=== PATIENT | male | born 1960 | race Caucasian/White ===

== ENCOUNTER → 2018-05-29 07:52 | Outpatient (CLI) | payer OTHER, SELFPAY ==
[2018-05-29 10:30] LABS: ALB/GLOB Ratio 1.1 RATIO (0.9-2.4); AST(SGOT) 15 U/L (15-37); Alanine Aminotransfer ALT/SGPT 23 U/L (16-61); Albumin, Serum 4.1 g/dL (3.2-5.0); Alkaline Phosphatase 82 U/L (45-117); Anion Gap 8 (5-15); BUN 17 mg/dL (7-18); BUN/Creat Ratio 17.9 RATIO (10-20); Calcium,Total 9.3 mg/dL (8.5-10.1); Chloride 100 mmol/L (98-107); Cholesterol 215 mg/dL (200); Creatinine, Serum 0.95 mg/dL (0.70-1.30); EST Glomerular Filtration Rate 87 mL/min (>60); Est Glom Filt Rate - Afr Amer 105 mL/min (>60); Globulin 3.8 g/dL (2.2-4.2); Glucose 91 mg/dL (74-106); High Density Lipoprotein 46 mg/dL; PSA,Total - Annual Screen 1.64 ng/mL (0.00-4.00); Potassium 3.7 mmol/L (3.5-5.1); Protein, Total 7.9 g/dL (6.4-8.2); Sodium Level 139 mmol/L (136-145); Triglycerides 124 mg/dL; Very Low Density Lipoprotein 25 mg/dL (5-40)
--- OUTSIDE RECORDS SUMMARY | 2018-07-24 01:32 | XMS RPT_ITS ---
:1960 Author Organization OHIP Care Team Providers Name Role Phone Dre Grullon Attending Unavailable Dre Grullon Referring Unavailable Dre Grullon Primary Care Unavailable PROBLEMS PROBLEMS No Problem Records FoundPROCEDURES PROCEDURES No Procedure Records FoundRESULTS RESULTS COMPREHENSIVE METABOLIC Collected: 05/29/2018 Status: F Source: BUBBA NICOLE 7:58 AM [facility] REPOSITORY Order Comment: Order Date: 06/05/17 Order Info: [id number] - CMP Order Info: [id number] - LIPID Order Info: [id number] - PSA TYPE CODE TESTS RESULT OUT OF RANGE REFERENCE UNITS LAB L501.0100 74-106 mg/dL Normal GLU 91 Result Comment: Please note revised GLUCOSE reference range effective 2017. LAB L501.1000 7-18 mg/dL Normal BUN 17 LAB L501.1100 0.70-1.30 mg/dL Normal CREAT,SERUM 0.95 Result Comment: The validity of the calculated GFR AND GFRAA in patients over 70 years has not been determined. Clinical correlation is essential. LAB L501.1110 >60 mL/min Normal EST GFR 87 Result Comment: Non- GFR Calc LAB L501.1115 >60 mL/min Normal EST GFR - AA 105 Result Comment: GFR Calc LAB L501.1300 10-20 RATIO Normal BUN/CRE 17.9 LAB L501.1500 6.4-8.2 g/dL T Normal PROT 7.9 LAB L501.1800 3.2-5.0 g/dL Normal ALB 4.1 LAB L501.1950 2.2-4.2 g/dL Normal GLOB 3.8 LAB L501.2000 0.9-2.4 RATIO Normal A/G 1.1 LAB L501.2200 8.5-10.1 mg/dL CA Normal 9.3 LAB L501.4100 15-37 U/L Normal AST 15 LAB L501.4305 45-117 U/L Normal ALK P 82 LAB L501.4405 16-61 U/L Normal ALT 23 LAB L501.4600 0.20-1.00 mg/dL T Normal BILI 0.90 LAB L501.5300 136-145 mmol/L NA Normal 139 LAB L501.5600 3.5-5.1 mmol/L K Normal 3.7 LAB L501.5900 98-107 mmol/L CL Normal 100 LAB L501.6100 21.0-32.0 mmol/L Normal CO2 31.0 LAB L501.6200 5-15 Normal GAP 8 Performed By: #### L500.4050, L500.4100 #### [facility] [address] [place], [address] LIPID PROFILE Collected: 05/29/2018 Status: F Source: NEVILLE 7:58 AM [facility] REPOSITORY Order Comment: Order Date: 06/05/17 Order Info: [id number] - CMP Order Info: [id number] - LIPID Order Info: [id number] - PSA TYPE CODE TESTS RESULT OUT OF RANGE REFERENCE UNITS LAB L501.4900 200 mg/dL High CHOL 215 Result Comment: <200 mg/dL Desirable 200-240 mg/dL Borderline >240 mg/dL High Risk LAB L501.5000 mg/dL Normal TRIG 124 Result Comment: The drugs N-Acetylcysteine and Metamizole may falsely depress this assay. Serum Triglycerides Reference Interval Normal <150 mg/dL Borderline high 150 - 199 mg/dL High 200 - 499 mg/dL Very High > or = 500 mg/dL LAB L501.6400 mg/dL Normal HDL 46 Result Comment: The drugs N-Acetylcysteine and Metamizole may falsely depress this assay. Reference Range HDL <40 mg/dL Low HDL Cholesterol HDL >or= 60 mg/dL High HDL Cholesterol LAB L501.6500 0-130 mg/dL High LDL 144 LAB L501.6600 5-40 mg/dL Normal VLDL 25 Performed By: #### L500.4050, L500.4100 #### [facility] [address] [place], [address] PSA,TOTAL - ANNUAL Collected: 05/29/2018 Status: F Source: BUBBA SCREEN 7:58 AM [facility] REPOSITORY Order Comment: Order Date: 06/05/17 Order Info: [id number] - CMP Order Info: [id number] - LIPID Order Info: [id number] - PSA TYPE CODE TESTS RESULT OUT OF RANGE REFERENCE UNITS LAB L501.9910 0.00-4.00 ng/mL Normal PSA,TOT 1.64 SCREEN Result Comment: This test was performed using the TPSA assay method for the [employer] chemistry system. Values obtained with different assay methods cannot be used interchangably. When changing PSA assays in the course of monitoring a patient, additional sequential testing should be carried out to confirm baseline values. Performed By: #### L501.9910 #### [facility] [address] [place], [address] ALLERGIES ALLERGIES No Allergies Records FoundENCOUNTERS ENCOUNTERS ADMIT/DISCHARGE ACCOUNT ADMITTING ENCOUNTER LOCATION SOURCE NUMBER CLASS 05/29/2018 [id number] Ambulatory [address] ing:MTLAB Repository PAYERS PAYERS ENCOUNTER GUARANTOR PAYER SUBSCRIBER SOURCE 05/29/2018 POLINA Ruby [id number] Primary Insurance:[id number] MCKEEDOB: [facility] [id number] [id number]: (234) Number: Repository [phone] () [id number] Date:[id number] [address], [place] [address]BT: CHECK WEBSITE 05/29/2018 [facility]:SELF [facility] Number: Effective Repository Date:2018-05-29
== END ==
PROVIDERS: Family Provider Family Medicine; PCP Family Medicine; Referring Provider Family Medicine; Visit Provider Family Medicine
DX: I10 Essential (primary) hypertension (principal); E78.5 Hyperlipidemia, unspecified; Z12.5 Encounter for screening for malignant neoplasm of prostate
CPT/HCPCS: 36415; 80053; 80061; 84153; G0103

== ENCOUNTER 2018-10-27 05:25 | Day surgery (SDC) | payer OTHER, SELFPAY ==
[2018-09-07 08:30] VITALS: BMI 24.4
[2018-10-27] VITALS (8 sets, daily range): BP systolic 107–127; BP diastolic 79–104; PULSE 62–79; RESP 16–18; TEMP 35.9–36.5; O2SAT 94–100; BMI 25.3
--- NOTE | 2018-10-27 | COLBX_PTH ---
PATIENT: POLINA KENT LOC: EN U#:[id number] AGE/SX: 58/M ROOM: RE10/27/[address]: Dr. Darien Gil MD : 1960 BED: DIS: 10/27/2018 SPEC #: [id number] RECD: 10/27/18 10:25 STATUS: ANAM KATHRYN #: [id number] DAMIÁN: 10/27/18 00:[address]: Darien Gil DEPT: SURGICAL PATHOLOGY RECD BY: Guilherme Carcamo ENTERED: 10/27/18 12:25 SP TYPE: COLON BX KYRA DR: Dr. Dre Grullon MD Tissues: A - Ascending colon B - Transverse colon C - SPLENIC FLEXURE D - Sigmoid colon biopsy E - Sigmoid colon biopsy Procedures: Surgery Specimen Level IV HEADER OPERATION: Colonoscopy - open access (MOD) PRE-OP DIAGNOSIS: Screening TISSUE SUBMITTED: A - Ascending colon polyp, B - Distal transverse polyp biopsy, C - Splenic flexure polyp biopsy, D - Proximal sigmoid polyp, E - Proximal sigmoid polyp MICROSCOPIC DIAGNOSIS A. Ascending colon polyp, biopsy: Tubular adenoma. Fragments of fecal material. B. Distal transverse colon polyp, biopsy: Fragments of tubular adenoma. C. Splenic flexure polyp, biopsy: Tubular adenoma. Fragments of fecal material. D. Proximal sigmoid colon polyp, biopsy: Tubular adenoma. Fragments of fecal material. E. Proximal sigmoid colon polyp, biopsy: Fragments of tubulovillous adenoma. CHIKIS:ab 10/28/18 MICROSCOPIC DESCRIPTION Slides are reviewed. GROSS DESCRIPTION A - Received in fixative is one container labeled with the patient's name and designated ascending colon polyp biopsy. The specimen consists of multiple irregular fragments of holt soft tissue mixed with fecal material that in aggregate measure 2 x 0.5 x 0.1 cm. The specimen is totally submitted in one cassette. B - Received in fixative is one container labeled with the patient's name and designated distal transverse polyp. The specimen consists of multiple irregular fragments of light holt soft tissue that in aggregate measure 1 x 0.3 x 0.1 cm. The specimen is totally submitted in one cassette. C - Received in fixative is one container labeled with the patient's name and designated splenic flexure polyp biopsy. The specimen consists of multiple irregular fragments of holt soft tissue mixed with fecal material that in aggregate measure 2.5 x 0.5 x 0.1 cm. The specimen is totally submitted in one cassette. D - Received in fixative is one container labeled with the patient's name and designated proximal sigmoid polyp. The specimen consists of multiple irregular fragments of holt soft tissue mixed with fecal material that in aggregate measure 1.5 x 0.3 x 0.1 cm. The specimen is totally submitted in one cassette. E - Received in fixative is one container labeled with the patient's name and designated proximal sigmoid polyp. The specimen consists of multiple irregular fragments of holt soft tissue mixed with fecal material that in aggregate measure 1 x 1 x 0.1 cm. The specimen is totally submitted in one cassette. / SJ:ab 10/27/18 TC:1 CPT: 97814 x5
--- NOTE | 2018-10-27 06:14 | PCM.HP.STD ---
Problem List (1) Screening for intestinal cancer Status: Acute History of Present Illness Date of Admission: 10/27/18 The patient is a 58 year old M who presents for screening colonoscopy. He states that his most recent one was approximately 5 years ago. He believes at that point he had a few polyps. They were benign. He denies bright red blood per rectum or melena. He otherwise enjoys good health. No history of recent hospitalizations. No history of DVT and thrombosis. No family history of colon cancer or colon polyps. Past Medical History Medical History: Medical History (Last Reviewed 09/07/18 @ 08:24 by Africa Pang) High cholesterol E78.00 history of finger surgery Hypertension I10 Allergies No Known Allergies Allergy (Unverified 10/26/18 16:04) Home Medications: Ambulatory Orders Medication Instructions Recorded atorvastatin 20 mg tablet 20 mg PO DAILY 07/02/18 hydrochlorothiazide 25 mg tablet 25 mg PO DAILY 07/02/18 Amlodipine Besylate [Norvasc] 10 mg PO DAILY 10/26/18 [place]-3/Dha/Epa/Fish Oil [Fish Oil 1 each PO DAILY 10/26/18 500 mg Softgel] Surgical History: Surgical History (Last Reviewed 09/07/18 @ 08:24 by Africa Pang) History of hernia repair Z98.890, Z87.19 History of vasectomy Z98.52 Smoking Status: Never smoker Tobacco Use: Chew Review of Systems Constitutional: Denies: Anorexia HEENT: Denies: Difficulty Swallowing Cardiovascular: Denies: Chest Pain Respiratory: Denies: Cough Gastrointestinal: Denies: Abdominal Pain, Melena Endocrine: Denies: Change in Body Habitus VTE Information - Inpt Only VTE Present on Admission: No Patient Problems: Active and Suspected Problems (Last Reviewed 09/07/18 @ 08:24 by Africa Pang) Screening for intestinal cancer (Acute) - Physical Exam General: Alert, Oriented x3, Cooperative, No apparent distress HEENT: Atraumatic Oral: Moist Mucosa Neck: Supple Lungs: Clear to auscultation Cardiovascular: Regular rate, Regular Rhythm Abdomen: Bowel Sounds Present, Soft, Non Tender, Non-Distended Psych/Mental Status: Normal Affect Vital Signs Temp Pulse Resp BP Pulse Ox 97.7 F L 79 16 123/89 H 99 10/27/18 05:47 10/27/18 05:47 10/27/18 05:47 10/27/18 05:47 10/27/18 05:47 Oxygen Delivery Method Room Air Weight: 181 lb 14.102 oz Body Mass Index (BMI) 25.3 Assessment/Plan All Active Problems (Last Reviewed 09/07/18 @ 08:24 by Africa Pang) Screening for intestinal cancer (Acute) Segmental and somatic dysfunction of pelvic region (Acute) Segmental and somatic dysfunction of lumbar region (Acute) Left lumbar radiculitis (Acute) I am recommending the patient is screening colonoscopy. He is aware of the technique, benefits, risks, alternatives. He has had an opportunity to ask and have questions answered. He presents via our open access program today. Darien Gil M.D., F.A.C.S.
--- NOTE | 2018-10-27 07:07 | OP.ENDO_ITS ---
10/27/2018 Colin Grullon [address] [place] [address] Re : Colonoscopy procedure for Aneudy Pena Dear Dr. Grullon This procedure was performed on Saturday, October 27, 2018. My impressions and recommendations are as follows: Impressions : - Hemorrhoids found on perianal exam. - Severe diverticulosis in the sigmoid colon and in the descending colon. There was no evidence of diverticular bleeding. - One 7 mm polyp in the mid ascending colon, removed with a cold snare. Resected and retrieved. - One 4 mm polyp in the distal transverse colon, removed with a cold biopsy forceps. Resected and retrieved. - One 5 mm polyp at the splenic flexure, removed with a cold biopsy forceps. Resected and retrieved. - One 6 mm polyp in the proximal sigmoid colon, removed with a cold snare. Resected and retrieved. - One 12 mm polyp in the proximal sigmoid colon, removed with a hot snare. Resected and retrieved. Clip was placed. Recommendations : - Repeat colonoscopy in 3 years for surveillance. - Telephone my office for pathology results in 1 week. - Discharge patient to home. - Resume previous diet. - Continue present medications. My findings are described in the full procedure note, which is enclosed. If I can be of further assistance, please feel free to contact me at Doctor phone number(s): Work: . Sincerely, Darien Gil MD 10/27/2018 7:07:33 AM This report has been signed electronically.
== END 2018-10-27 07:45 | disposition home or self-care (01) ==
LOC: EN 05:26 → AC 05:29
PROVIDERS: Family Provider Family Medicine; PCP Family Medicine; Referring Provider Family Medicine; Visit Provider Surgery
PROC: 0DJD8ZZ Inspection of Lower Intestinal Tract, Via Natural or Artificial Opening Endoscopic (ICD-10-PCS; CPT 45378; principal; 2018-10-27 06:25)
DX: Z12.11 Encounter for screening for malignant neoplasm of colon (principal); Z86.010 Personal history of colon polyps; K64.9 Unspecified hemorrhoids; D12.2 Benign neoplasm of ascending colon; D12.3 Benign neoplasm of transverse colon; D12.5 Benign neoplasm of sigmoid colon; K57.30 Diverticulosis of large intestine without perforation or abscess without bleeding; E78.00 Pure hypercholesterolemia, unspecified; I10 Essential (primary) hypertension
CPT/HCPCS: 45380; 45385; 88305; 99152; 99153; J7120

== ENCOUNTER → 2019-05-28 07:27 | Outpatient (CLI) | payer OTHER, SELFPAY ==
[2018-10-27 05:47] VITALS: BMI 25.3
[2019-05-28 10:34] LABS: ALB/GLOB Ratio 1.3 RATIO (0.9-2.4); AST(SGOT) 13 U/L (15-37); Alanine Aminotransfer ALT/SGPT 22 U/L (16-61); Albumin, Serum 4.3 g/dL (3.2-5.0); Alkaline Phosphatase 71 U/L (45-117); Anion Gap 7 (5-15); BUN 17 mg/dL (7-18); BUN/Creat Ratio 17.3 RATIO (10-20); Calcium,Total 9.2 mg/dL (8.5-10.1); Chloride 101 mmol/L (98-107); Cholesterol 205 mg/dL (200); Creatinine, Serum 0.98 mg/dL (0.70-1.30); EST Glomerular Filtration Rate 83 mL/min (>60); Est Glom Filt Rate - Afr Amer 101 mL/min (>60); Globulin 3.3 g/dL (2.2-4.2); Glucose 96 mg/dL (74-106); High Density Lipoprotein 47 mg/dL; PSA,Total - Annual Screen 2.01 ng/mL (0.00-4.00); Potassium 4.3 mmol/L (3.5-5.1); Protein, Total 7.6 g/dL (6.4-8.2); Sodium Level 139 mmol/L (136-145); Triglycerides 164 mg/dL; Very Low Density Lipoprotein 33 mg/dL (5-40)
== END ==
PROVIDERS: Family Provider Family Medicine; PCP Family Medicine; Referring Provider Family Medicine; Visit Provider Family Medicine
DX: I10 Essential (primary) hypertension (principal)
CPT/HCPCS: 36415; 80053; 80061; 84153; G0103

== ENCOUNTER → 2019-12-02 07:19 | Outpatient (CLI) | payer OTHER, SELFPAY ==
[2018-10-27 05:47] VITALS: BMI 25.3
[2019-12-02 10:27] LABS: Anion Gap 7 (5-15); BUN 24 mg/dL (7-18); BUN/Creat Ratio 23.8 RATIO (10-20); Calcium,Total 9.4 mg/dL (8.5-10.1); Chloride 102 mmol/L (98-107); Cholesterol 167 mg/dL (200); Creatinine, Serum 1.01 mg/dL (0.70-1.30); EST Glomerular Filtration Rate 81 mL/min (>60); Est Glom Filt Rate - Afr Amer 98 mL/min (>60); Glucose 100 mg/dL (74-106); High Density Lipoprotein 43 mg/dL; Potassium 3.8 mmol/L (3.5-5.1); Sodium Level 139 mmol/L (136-145); Triglycerides 111 mg/dL; Very Low Density Lipoprotein 22 mg/dL (5-40)
== END ==
PROVIDERS: PCP Family Medicine; Referring Provider Family Medicine; Visit Provider Family Medicine
DX: I10 Essential (primary) hypertension (principal); E78.5 Hyperlipidemia, unspecified
CPT/HCPCS: 36415; 80048; 80061

== ENCOUNTER → 2020-02-14 | Outpatient (CLI) | payer OTHER, SELFPAY ==
[2018-10-27 05:47] VITALS: BMI 25.3
[2020-02-14 11:09] LABS: Bacteria 0 SEEN /hpf (None Seen); Mucous, Urine 0 SEEN /hpf (<or=2+); Squamous Epithelial Cells - UA 0 SEEN /hpf (0-5); White Blood Cells 0 SEEN /hpf (0-5)
[2020-02-14 12:36] LABS: Color, Urine Yellow (Yellow); Glucose, Dipstick Normal (Normal); Ketone-Dipstick Negative (Negative); Leukocyte Esterase-Dipstick Negative /ul (Negative); Nitrite-Dipstick Negative (Negative); Occult Blood-Urine 25 /ul (Negative); Protein-Dipstick Negative (Negative); Urine Bilirubin Dipstick Negative (Negative); Urine Clarity Clear (Clear); Urine Urobilinogen Normal (Normal)
[2020-02-14 12:42] LABS: Red Blood Cells-Urine 0-5 SEEN /hpf (0-5)
== END | disposition home or self-care (01) ==
LOC: MFPLAB 11:05 → LABSPEC 11:06
PROVIDERS: PCP Family Medicine; Referring Provider Family Medicine; Visit Provider Nurse Practitioner Adult Health
DX: R31.9 Hematuria, unspecified (principal)
CPT/HCPCS: 81001

== ENCOUNTER → 2020-06-12 08:57 | Outpatient (CLI) | payer OTHER, SELFPAY ==
[2018-10-27 05:47] VITALS: BMI 25.3
--- NOTE | 2020-06-12 09:00 | RAD_ITS ---
STUDY: X-RAY - LUMBOSACRAL SPINE REASON FOR EXAM: Male, 59 years old. low back pain TECHNIQUE: 7 view(s) of the lumbosacral spine were obtained. COMPARISON: 07/20/2018 FINDINGS: Normal lumbar lordosis. Mild dextroscoliosis. 5 mm of anterolisthesis of L3 on L4 which is unchanged. This is unchanged on the flexion and extension views without evidence of instability. There is demineralization of the lumbar vertebrae. There is multi-level degenerative disc disease with multi-level disc space narrowing. Normal bilateral sacral ala, sacroiliac joints, and visualized sacrum. Normal visualized soft tissue structures. RAD/L/S Spine Bending Flex/Ext IMPRESSION: Mild dextroscoliosis with degenerative disc disease with 5 mm of anterolisthesis of L3 on L4 which is unchanged on the flexion and extension views. Electronically Signed: Ryan Baker MD at 17:00 EST Tel , Service support ,
== END ==
LOC: MTLAB 08:58 → MTRAD 08:59
PROVIDERS: PCP Family Medicine; Referring Provider Family Medicine; Visit Provider Family Medicine
DX: M43.16 Spondylolisthesis, lumbar region (principal); M51.36 Other intervertebral disc degeneration, lumbar region
CPT/HCPCS: 72120

== ENCOUNTER → 2020-07-06 10:16 | Outpatient (CLI) | payer OTHER, SELFPAY ==
[2018-10-27 05:47] VITALS: BMI 25.3
--- NOTE | 2020-07-06 10:20 | MRI_ITS ---
STUDY: MRI LUMBAR SPINE WITHOUT CONTRAST REASON FOR EXAM: Male, 59 years old. c/o low back pain into R leg and down into calf, no known trauma TECHNIQUE: Standardized fat and water weighted pulse sequences were obtained in the sagittal and axial planes. COMPARISON: X-ray 06/12/2020 FINDINGS: T12-L1: Normal endplates. Normal disc height, hydration and morphology. Normal bilateral facet joints. Normal central canal and bilateral lateral recesses. Normal bilateral intervertebral neural foramina. Normal lumbar lordosis. There is no substantial scoliosis. Normal conus medullaris that terminates at the T12. L1-2: Disc desiccation with a small central annular tear but no disc protrusion, spinal stenosis, or neural foraminal stenosis. L2-3: Normal endplates. Normal disc height, hydration and morphology. Normal bilateral facet joints. Normal central canal and bilateral lateral recesses. Normal bilateral intervertebral neural foramina. L3-4: Moderate bilateral facet hypertrophy and mild ligament flavum hypertrophy. 5 mm of anterolisthesis of L3 on L4 with a mild broad disc protrusion produces mild spinal stenosis, mild bilateral lateral recess stenosis and severe bilateral neural foraminal stenosis with effacement of the exiting L3 nerve roots bilaterally. L4-5: Mild bilateral facet hypertrophy and ligament flavum hypertrophy. Moderate broad disc protrusion produces moderate spinal stenosis with moderate bilateral lateral recess stenosis with abutment of the L5 nerve roots bilaterally, moderate right lateral recess stenosis with abutment of the right L4 nerve root laterally and severe left neural foraminal stenosis with effacement the left L4 nerve root laterally. L5-S1: Mild bilateral facet hypertrophy and ligament flavum hypertrophy. Mild broad disc protrusion produces mild spinal stenosis with mild bilateral lateral recess stenosis and mild left neural foraminal stenosis but severe right neural foraminal stenosis with effacement of the right L5 nerve root laterally. Normal visualized sacral ala. Normal visualized paraspinous soft tissue structures. MRI/Spine Lumbar (Routine) IMPRESSION: Multilevel degenerative changes, as described above. Electronically Signed: Ryan Baker MD at 12:42 EST Tel , Service support ,
== END ==
PROVIDERS: PCP Family Medicine; Referring Provider Family Medicine; Visit Provider Family Medicine
DX: M54.5 Low back pain (principal)
CPT/HCPCS: 72148

== ENCOUNTER → 2020-11-30 07:01 | Outpatient (CLI) | payer OTHER, SELFPAY ==
[2020-07-28 08:50] VITALS: BMI 25.7
[2020-11-30 10:50] LABS: ALB/GLOB Ratio 1.2 RATIO (0.9-2.4); AST(SGOT) 16 U/L (15-37); Alanine Aminotransfer ALT/SGPT 27 U/L (16-61); Alkaline Phosphatase 73 U/L (45-117); Anion Gap 8 (5-15); BUN 22 mg/dL (7-18); BUN/Creat Ratio 24.3 RATIO (10-20); Calcium,Total 8.9 mg/dL (8.5-10.1); Chloride 102 mmol/L (98-107); Cholesterol 167 mg/dL (200); EST Glomerular Filtration Rate 91 mL/min (>60); Est Glom Filt Rate - Afr Amer 110 mL/min (>60); Globulin 3.2 g/dL (2.2-4.2); Glucose 103 mg/dL (74-106); High Density Lipoprotein 53 mg/dL; PSA,Total - Annual Screen 2.08 ng/mL (0.00-4.00); Potassium 4.2 mmol/L (3.5-5.1); Protein, Total 7.2 g/dL (6.4-8.2); Sodium Level 140 mmol/L (136-145); Triglycerides 94 mg/dL; Very Low Density Lipoprotein 19 mg/dL (5-40)
== END ==
PROVIDERS: PCP Family Medicine; Referring Provider Family Medicine; Visit Provider Family Medicine
DX: I10 Essential (primary) hypertension (principal); E78.5 Hyperlipidemia, unspecified; Z12.5 Encounter for screening for malignant neoplasm of prostate
CPT/HCPCS: 36415; 80053; 80061; 84153; G0103

== ENCOUNTER → 2021-12-11 | Outpatient (CLI) | payer OTHER, SELFPAY ==
[2021-12-11 12:57] LABS: ALB/GLOB Ratio 1.1 RATIO (0.9-2.4); AST(SGOT) 18 U/L (15-37); Alanine Aminotransfer ALT/SGPT 41 U/L (16-61); Albumin, Serum 4.2 g/dL (3.2-5.0); Alkaline Phosphatase 79 U/L (45-117); Anion Gap 6 (5-15); BUN 28 mg/dL (7-18); BUN/Creat Ratio 29.4 RATIO (10-20); Calcium,Total 9.4 mg/dL (8.5-10.1); Chloride 103 mmol/L (98-107); Cholesterol 184 mg/dL (200); Creatinine, Serum 0.95 mg/dL (0.70-1.30); EST Glomerular Filtration Rate 86 mL/min (>60); Est Glom Filt Rate - Afr Amer 103 mL/min (>60); Globulin 3.7 g/dL (2.2-4.2); Glucose 99 mg/dL (74-106); High Density Lipoprotein 51 mg/dL; Protein, Total 7.9 g/dL (6.4-8.2); Sodium Level 138 mmol/L (136-145); Triglycerides 102 mg/dL; Very Low Density Lipoprotein 20 mg/dL (5-40)
== END | disposition home or self-care (01) ==
PROVIDERS: PCP Family Medicine; Referring Provider Family Medicine; Visit Provider Family Medicine
DX: Z12.5 Encounter for screening for malignant neoplasm of prostate (principal); E78.5 Hyperlipidemia, unspecified; I10 Essential (primary) hypertension
CPT/HCPCS: 36415; 80053; 80061; 84153; G0103

== ENCOUNTER 2022-10-11 06:48 | Day surgery (SDC) | payer OTHER, SELFPAY ==
[2022-10-11] VITALS (8 sets, daily range): BP systolic 96–145; BP diastolic 68–102; PULSE 48–67; RESP 16–18; TEMP 36–36.6; O2SAT 92–100; BMI 25.6
[2022-10-11] MEDS: Lactated Ringers 1,000 ML 15 ML IV (07:19)
--- NOTE | 2022-10-11 07:30 | HP.PCM_ITS ---
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: No Accompanied by: Is patient in pain?: No Allergies lactase [From [employer]] Allergy (Mild, Verified 07/25/22 07:35) Rashsoap Allergy (Mild, Verified 07/25/22 07:35) Rash Medications hydrochlorothiazide 25 mg tablet 25 mg PO DAILY bp 07/02/18 [History Confirmed 07/25/22] amlodipine 10 mg tablet 10 mg PO DAILY 10/26/18 [History Confirmed 07/25/22] atorvastatin 20 mg tablet 40 mg PO DAILY cholesterol 07/28/20 [History Confirmed 07/25/22] losartan 100 mg tablet 100 mg PO DAILY 07/28/20 [History Confirmed 07/25/22] meloxicam 7.5 mg tablet 7.5 mg PO DAILY 07/25/22 [History Confirmed 07/25/22] PFSH Medical History?(Updated 07/25/22 @ 07:[address] Darien Gil MD) High cholesterol History of colon polyps history of finger surgery Hypertension Surgical History? History of hernia repair History of vasectomy Family History? Mother HypertensionFather?? Hyperlipidemia sarcoid tumor S/P triple vessel bypassAunt Bone cancerAunt Breast cancerUncle DiabetesGrandfather?? Myocardial infarctionOther Cancer Social History? household members:? spouse and children housing:? house current occupational status:? employed Smoking Status:? Never smoker alcohol intake:? current alcohol intake frequency: holidays/special occasions only substance use type:? does not use what type of physical activity do you participate in:? 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 Yes HPI HPI HPI: 61-year-old gentleman who is being referred by Dr. Dre Grullon for surgical consultation regarding a surveillance colonoscopy.? He otherwise enjoys good health.? It is of note that I have assisted the patient as recently as October 27, 2018 with a colonoscopy.? I removed a tubular adenoma from the ascending colon and a tubular adenoma from the distal transverse colon and a tubular adenoma from the splenic flexure and a tubular adenoma from from the proximal sigmoid and a tubulovillous adenoma from the proximal sigmoid.? Fortunately at this time he has no bright red blood per rectum or melena.? No unexpected weight change.? He enjoys good health other than hypertension and hyperlipidemia.? He is not on any anticoagulation. ROS General General: No weight change, appetite, fatigue, colon cancer, breast cancer or weakness HEENT HEENT: No difficulty swallowing, eye injury, eye surgery, swollen glands or hoarseness Endo Endocrine: No thyroid disease, diabetes mellitus, thyroid cancer, Hair loss, heat intolerance or cold intolerance Skin Skin: No rash or changing moles Breast Breast: No left breast lump, right breast lump, nipple discharge, breast pain, abnormal mammogram, abnormal US or breast enlargement Musc Musculoskeletal: No back problems, arthritis, rheumatoid arthritis, gout or joint pain Cardio Cardiovascular: Yes high blood pressure; No murmur, pacemaker, heart disease, atrial fibrillation, heart attack, heart stent, palpitations, shortness of breat with exertion or chest pain Psych Psychiatric: No depression, anxiety or hearing voices Resp Respiratory: No shortness of breath, No sleep apnea, No cough, No COPD, No asthma, No emphysema and No wheezing Gastro Gastrointestinal: No abdominal pain, No nausea or vomiting, No diarrhea, No constipation, No blood in stool, No acid reflux, No hemorrhoids, No ulcers, No gallbladder problem and No black,tarry stools Jonah Hematologic: No blood thinners, No blood disorders, No bleeding, No anemia and No blood clots Neuro Neurologic: No system reviewed and no additional complaints, except as documented, No as per HPI, No abnormal gait, No abnormal hearing, No abnormal movements, No abnormal speech, No behavioral changes, No burning sensations, No confusion, No convulsions, No disequilibrium, No dizziness, No localized weakness, No frequent falls, No headache(s), No lack of coordination, No loss of vision, No memory loss, No numbness, No other visual disturbances, No radicular pain, No restless legs, No sensory deficit, No syncope, No tingling, No tremor(s), No weakness and No other Exam Const General: cooperative, healthy appearing, comfortable and no acute distress [facility] Head: normal to inspection Eyes General: appearance normal, both eyes and all related structures Neck Neck: normal visual inspection Carotids: normal carotid upstroke and no bruits Chest Chest palpation & inspection: normal inspection of the chest Resp Effort & Inspection: normal respiratory effort Auscultation: clear to auscultation bilaterally Cardio Rate: regular rate Rhythm: regular rhythm GI Palpation: soft and no hepatosplenomegaly Auscultation: normal bowel sounds Neuro General: patient alert, patient awake and patient oriented x3 Extrem General: no calf tenderness Psych Appearance: grossly normal Assessment and Plan Assessment and Plan (1) History of colon polyps: ?Status:?Acute ?Plan: 61-year-old gentleman with a personal history of colon polyps.? Previous colonoscopy October 27, 2018 with 5 polyps removed at that time 1 including a tubulovillous adenoma of the proximal sigmoid.? I do recommend him a colonoscopy with possible biopsy or polypectomy as indicated.? He is aware of the technique, benefit, risk and alternatives.? He has had an opportunity to ask and have questions answered.? We will schedule procedure at his discretion.? I appreciate the opportunity of assisting with the surgical care. Copy: Dr. Dre Gil M.D., F.A.C.S I have examined the patient and the H&P has been reviewed. There are no clinical changes since date of exam. Darien Gil M.D., F.A.C.S.
--- NOTE | 2022-10-11 08:54 | OP.COLON_ITS ---
Patient Name: Aneudy Pena Procedure Date: 10/11/2022 8:23 AM Date of : 1960 Age: 62 Procedure: Colonoscopy Indications: High risk colon cancer surveillance: Personal history of colonic polyps Providers: Darien Gil MD Referring MD: Colin Grullon Medicines: See the Anesthesia note for documentation of the administered medications Patient Profile: Last Colonoscopy: September 2018. Complications: No immediate complications. Procedure: Pre-Anesthesia Assessment: - Prior to the procedure, a History and Physical was performed, and patient medications and allergies were reviewed. The patient's tolerance of previous anesthesia was also reviewed. The risks and benefits of the procedure and the sedation options and risks were discussed with the patient. All questions were answered, and informed consent was obtained. Prior Anticoagulants: The patient has taken no previous anticoagulant or antiplatelet agents. ASA Grade Assessment: II - A patient with mild systemic disease. After reviewing the risks and benefits, the patient was deemed in satisfactory condition to undergo the procedure. After I obtained informed consent, the scope was passed under direct vision. Throughout the procedure, the patient's blood pressure, pulse, and oxygen saturations were monitored continuously. The pediatric colonoscope was introduced through the anus and advanced to the cecum, identified by appendiceal orifice and ileocecal valve. The colonoscopy was performed without difficulty. The patient tolerated the procedure well. The quality of the bowel preparation was good. The ileocecal valve and the appendiceal orifice were photographed. Scope In: 8:32:50 AM Scope Withdrawal Time 0 hours 10 minutes 25 seconds Scope Out: 8:49:21 AM Total Procedure Duration Time 0 hours 16 minutes 31 seconds Findings: The digital rectal exam findings include non-thrombosed internal hemorrhoids, internal hemorrhoids (Grade I) and enlarged prostate. Multiple diverticula were found in the sigmoid colon and descending colon. Impression: - Non-thrombosed internal hemorrhoids, internal hemorrhoids (Grade I) and enlarged prostate found on digital rectal exam. - Diverticulosis in the sigmoid colon and in the descending colon. - No specimens collected. Recommendation: - Discharge patient to home. - Resume previous diet. - Continue present medications. - Repeat colonoscopy in 5 years for surveillance. Procedure Code(s): --- Professional --- 55327, Colonoscopy, flexible; diagnostic, including collection of specimen(s) by brushing or washing, when performed (separate procedure) Diagnosis Code(s): --- Professional --- Z86.010, Personal history of colonic polyps K64.0, First degree hemorrhoids N40.0, Benign prostatic hyperplasia without lower urinary tract symptoms K57.30, Diverticulosis of large intestine without perforation or abscess without bleeding CPT copyright 2017 [employer]. All rights reserved. The codes documented in this report are preliminary and upon roller repairer review may be revised to meet current compliance requirements. Darien Gil MD 10/11/2022 8:53:40 AM This report has been signed electronically. Number of Addenda: 0 Note Initiated On: 10/11/2022 8:23 AM
--- NOTE | 2022-10-11 08:55 | OP.CCLET_ITS ---
10/11/2022 Colin Grullon [address] [place] [address] Re : Colonoscopy procedure for Aneudy Pena Dear Dr. Grullon This procedure was performed on Tuesday, October 11, 2022. My impressions and recommendations are as follows: Impressions : - Non-thrombosed internal hemorrhoids, internal hemorrhoids (Grade I) and enlarged prostate found on digital rectal exam. - Diverticulosis in the sigmoid colon and in the descending colon. - No specimens collected. Recommendations : - Discharge patient to home. - Resume previous diet. - Continue present medications. - Repeat colonoscopy in 5 years for surveillance. My findings are described in the full procedure note, which is enclosed. If I can be of further assistance, please feel free to contact me at Doctor phone number(s): Work: . Sincerely, Darien Gil MD 10/11/2022 8:53:40 AM This report has been signed electronically.
== END 2022-10-11 09:48 | disposition home or self-care (01) ==
LOC: EN 06:49 → AC 06:51
PROVIDERS: PCP Family Medicine; Referring Provider Family Medicine; Visit Provider Surgery
PROC: 0DJD8ZZ Inspection of Lower Intestinal Tract, Via Natural or Artificial Opening Endoscopic (ICD-10-PCS; CPT 45378; principal; 2022-10-11 07:55)
DX: Z12.11 Encounter for screening for malignant neoplasm of colon (principal); K64.0 First degree hemorrhoids; K57.30 Diverticulosis of large intestine without perforation or abscess without bleeding; N40.0 Benign prostatic hyperplasia without lower urinary tract symptoms; I10 Essential (primary) hypertension; E78.5 Hyperlipidemia, unspecified; Z79.899 Other long term (current) drug therapy; Z86.010 Personal history of colon polyps
CPT/HCPCS: 45378; J7120

== ENCOUNTER → 2022-11-12 | Outpatient (CLI) | payer OTHER, SELFPAY ==
[2022-11-12 12:57] LABS: AST(SGOT) 16 U/L (15-37); Alanine Aminotransfer ALT/SGPT 24 U/L (16-61); Alkaline Phosphatase 72 U/L (45-117); Anion Gap 7 (5-15); BUN 24 mg/dL (7-18); BUN/Creat Ratio 27.6 RATIO (10-20); Calcium,Total 9.6 mg/dL (8.5-10.1); Chloride 105 mmol/L (98-107); Cholesterol 171 mg/dL (200); Creatinine, Serum 0.87 mg/dL (0.70-1.30); EST Glomerular Filtration Rate 95 mL/min (>60); Est Glom Filt Rate - Afr Amer 115 mL/min (>60); Globulin 3.9 g/dL (2.2-4.2); Glucose 103 mg/dL (74-106); High Density Lipoprotein 47 mg/dL; Potassium 3.9 mmol/L (3.5-5.1); Protein, Total 7.9 g/dL (6.4-8.2); Sodium Level 140 mmol/L (136-145); Triglycerides 92 mg/dL; Very Low Density Lipoprotein 18 mg/dL (5-40)
== END | disposition home or self-care (01) ==
LOC: MTLAB 09:34
PROVIDERS: PCP Family Medicine; Referring Provider Family Medicine; Visit Provider Family Medicine
DX: E78.5 Hyperlipidemia, unspecified (principal); Z12.5 Encounter for screening for malignant neoplasm of prostate
CPT/HCPCS: 36415; 80053; 80061

== ENCOUNTER 2023-09-01 08:27 | Day surgery (SDC) | payer OTHER, SELFPAY ==
--- NOTE | 2023-08-29 06:59 | EKG12_ITS ---
Test Reason : PREOP Blood Pressure : / mmHG Vent. Rate : 077 BPM Atrial Rate : 077 BPM P-R Int : 150 ms QRS Dur : 100 ms QT Int : 380 ms P-R-T Axes : 039 081 067 degrees QTc Int : 430 ms Normal sinus rhythm Normal ECG Confirmed by EDITH CHRISTIANSON, HORACIO ([id number]), purchase request editor NEELIMA LEZAMA ([id number]) on 09/01/2023 6:53:59 AM Referred By: Darien Gil Confirmed By:TASHIA SHARMA MD
[2023-08-29 09:32] LABS: Hematocrit 43.2 % (40-54); Hemoglobin 14.7 g/dL (13.0-16.5); Mean Corpuscular Hgb 30.3 pg (27.0-32.0); Mean Corpuscular Volume 89.1 fL (80-94); Mean Platelet Vol. 11.3 fl (6.2-12.0); Platelet Count 251 K/mm3 (150-450); RBC Distribution Width CV 12.4 % (11.6-14.6); RBC Distribution Width SD 40.5 fl (35.1-43.9); Red Blood Count 4.85 M/mm3 (4.6-6.2); White Blood Count 5.8 K/mm3 (4.4-11.0)
[2023-08-29 10:08] LABS: ALB/GLOB Ratio 1.1 RATIO (0.9-2.4); AST(SGOT) 13 U/L (15-37); Alanine Aminotransfer ALT/SGPT 19 U/L (16-61); Albumin, Serum 4.2 g/dL (3.2-5.0); Alkaline Phosphatase 78 U/L (45-117); Anion Gap 5 (5-15); BUN 18 mg/dL (7-18); BUN/Creat Ratio 17.5 RATIO (10-20); Calcium,Total 9.4 mg/dL (8.5-10.1); Chloride 106 mmol/L (98-107); Cholesterol 178 mg/dL (200); Creatinine, Serum 1.03 mg/dL (0.70-1.30); EST Glomerular Filtration Rate 78 mL/min (>60); Est Glom Filt Rate - Afr Amer 94 mL/min (>60); Globulin 3.7 g/dL (2.2-4.2); Glucose 105 mg/dL (74-106); High Density Lipoprotein 43 mg/dL; PSA,Total - Annual Screen 2.78 ng/mL (0.00-4.00); Potassium 3.8 mmol/L (3.5-5.1); Protein, Total 7.9 g/dL (6.4-8.2); Sodium Level 138 mmol/L (136-145); Triglycerides 112 mg/dL; Very Low Density Lipoprotein 22 mg/dL (5-40)
[2023-08-30 06:09] LABS: V-Zoster IgG (Immunity) 238 index (Immune >165)
[2023-09-01] VITALS (8 sets, daily range): BP systolic 116–135; BP diastolic 64–96; PULSE 52–66; RESP 16–18; TEMP 36.2–36.6; O2SAT 91–98; BMI 27.1
--- NOTE | 2023-09-01 | LES_PTH ---
PATHOLOGY RESULTS PATIENT: POLINA KENT LOC: [facility] [place] U#:[id number] AGE/SX: 62/M ROOM: RE09/01/[address]: Dr. Darien Gil MD : 1960 BED: DIS: 09/01/2023 SPEC #: [id number] RECD: 09/01/23 14:07 STATUS: ANAM PERALTA #: [id number] DAMIÁN: 09/01/23 00:[address]: Darien Gil DEPT: SURGICAL PATHOLOGY RECD BY: Guilherme Carcamo ENTERED: 09/02/23 08:59 SP TYPE: Lesion OTHR DR: Dr. Dre Grullon MD Tissues: Skin, NOS Procedures: Surgery Specimen Level IV HEADER OPERATION: Laparoscopic right inguinal hernia repair with mesh, amputation PRE-OP DIAGNOSIS: Inguinal hernia of left side TISSUE SUBMITTED: Umbilical skin tag MICROSCOPIC DIAGNOSIS Umbilical skin lesion, excision: Intradermal nevus. SJ:ab 09/03/2023 MICROSCOPIC DESCRIPTION Slides are reviewed. GROSS DESCRIPTION Received in fixative is one container labeled with the patient's name and designated umbilical skin tag. The specimen consists of a piece of holt-brown skin measuring 0.7 x 0.2 x 0.2 cm. The entire specimen is submitted in one cassette. / SJ:ab 09/02/2023 TC:1 CPT: 52860
[2023-09-01] MEDS: Lactated Ringers 1,000 ML 15 ML IV (09:04)
--- NOTE | 2023-09-01 09:44 | DCINST_ITS ---
Discharge Instructions Procedure General Surgery Diet Discharge Diet: Light diet - advance as tolerated (if you have questions about your diet instructions, please talk to you doctor.) Activity Discharge Activity: May Not Drive (for 3-5 days or while taking narcotic pain medicine.) May shower in (days): 1 Lifting Restrictions: 10 pounds Dressing / Incision Call your doctor if your incision/area has: Continuous Slow Oozing, Sudden Increased Bleeding, Increased Pain/ Swelling, Increased Redness and Foul Smelling Discharge Call your doctor if you observe: Fever of 101 or Higher Suture Line Care: Avoid Pulling/Pushing and Avoid Pinching/Bending Additional Dressing/Incision Instructions:: Change or remove dressing in 4 days. Leave steri-strips in place for 1 week. Follow Up Care Please Follow Up With: Darien Gil MD When: Call [phone] to make an appointment to be seen in about 10 days. Test Results: Test results from this visit will be discussed in further detail at your follow- up appointment, if applicable. Discharge Plan Admission Attending Provider: Darien Gil Primary Care Provider: Colin Grullon Discharge Orders/Prescriptions Prescriptions: No Action hydrochlorothiazide 25 mg tablet 25 mg PO DAILY atorvastatin 20 mg tablet 40 mg PO DAILY losartan 100 mg tablet 100 mg PO DAILY amlodipine 10 MG tablet 10 mg PO DAILY Referrals / Follow Up: Colin Grullon MD [Primary Care Provider] - Disposition Disposition (needs filled in before D/C Order can be placed): Home, Self Care
--- NOTE | 2023-09-01 09:44 | HP.PCM_ITS ---
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 Is patient in pain?: No Allergies lactase [From [employer]] Allergy (Mild, Verified 08/25/23 09:05) Rashsoap Allergy (Mild, Verified 08/25/23 09:05) Rash Medications hydrochlorothiazide 25 mg tablet 25 mg PO DAILY bp 07/02/18 [History Confirmed 08/25/23] amlodipine 10 mg tablet 10 mg PO DAILY 10/26/18 [History Confirmed 08/25/23] atorvastatin 20 mg tablet 40 mg PO DAILY cholesterol 07/28/20 [History Confirmed 08/25/23] losartan 100 mg tablet 100 mg PO DAILY 07/28/20 [History Confirmed 08/25/23] meloxicam 7.5 mg tablet 7.5 mg PO DAILY 07/25/22 [History Confirmed 08/25/23] PFSH Medical History High cholesterol History of colon polyps history of finger surgery Hypertension Non-smoker Surgical History History of hernia repair History of vasectomy Family History (Updated 07/31/22 @ 07:56 by Sandra Negron) Mother HypertensionFather Hyperlipidemia sarcoid tumor S/P triple vessel bypassAunt Bone cancerAunt Breast cancerUncle DiabetesGrandfather Myocardial infarctionOther Cancer Social History household members: spouse and children housing: house current occupational status: employed Smoking Status: Never smoker alcohol intake: current alcohol intake frequency: holidays/special occasions only substance use type: does not use 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 Dre Grullon for surgical consulta tion regarding a left inguinal hernia. Written compromise surgical consult recommendations will return to him. is limited. The patient has known about this right inguinal hernia at least since October 2022. 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 He has had a remote left inguinal hernia repair done per another surgeon through an open approach. He states that that is solid. He notes that this right inguinal hernia is now bulging significantly. He does have to manually manipulate and reduce it. It is is becoming increasingly uncomfortable. He otherwise enjoys good health. ROS General General: No weight change, appetite, fatigue, colon cancer, breast cancer or weakness HEENT HEENT: No difficulty swallowing, eye injury, eye surgery, swollen glands or hoarseness Endo Endocrine: No thyroid disease, diabetes mellitus, thyroid cancer, Hair loss, heat intolerance or cold intolerance Skin Skin: No rash or changing moles [facility] Musculoskeletal: Yes back problems; No arthritis, rheumatoid arthritis, gout or joint pain Cardio Cardiovascular: Yes high blood pressure; No murmur, pacemaker, heart disease, atrial fibrillation, heart attack, heart stent, palpitations, shortness of breat with exertion or chest pain Psych Psychiatric: No depression, anxiety or hearing voices Resp Respiratory: No shortness of breath, No sleep apnea, No cough, No COPD, No asthma, No emphysema and No wheezing Gastro Gastrointestinal: No abdominal pain, No nausea or vomiting, No diarrhea, No constipation, No blood in stool, No acid reflux, No hemorrhoids, No ulcers, No gallbladder problem and No black,tarry stools Jonah Hematologic: No blood thinners, No blood disorders, No bleeding, No anemia and No blood clots Neuro Neurologic: No tingling and No weakness Exam Const General: cooperative, healthy appearing, comfortable and no acute distress [facility] Head: normal to inspection Eyes General: appearance normal, both eyes and all related structures Neck Neck: normal visual inspection Chest Chest palpation & inspection: normal inspection of the chest Resp Effort & Inspection: normal respiratory effort Auscultation: clear to auscultation bilaterally Cardio Rate: regular rate Rhythm: regular rhythm GI Inspection: normal to inspection Palpation: soft and no hepatosplenomegaly Other: Left groin solid and intact Obvious bowel involvement within the right inguinal hernia which takes effort to manually reduce. Testicles are descended though atrophic. [facility] Cervical Spine: normal cervical lordosis Skin General: no rashes or lesions noted Neuro General: patient alert and patient awake Psych Appearance: grossly normal Assessment and Plan Assessment and Plan (1) Inguinal hernia of left side without obstruction or gangrene: Status: Acute Plan: Very physically active 62-year-old gentleman. is oCrdelia. I recommend him a laparoscopic right inguinal hernia repair with mesh. He is aware of the technique, benefit, risk, alternatives. No guarantees of success been offered. He actually is already scheduled for a week from now. He has had an opportunity to ask and have questions answered. We will proceed as noted. Copy: Dr. Dre Gil M.D., F.A.C.S I have examined the patient and the H&P has been reviewed. There are no clinical changes since date of exam. Darien Gil M.D., F.A.C.S.
[2023-09-01] MEDS: Cefazolin 2 GM in 0.9% Normal Saline (100mL Bag) 100 ML IV (10:33)
[2023-09-01] MEDS: Bupivacaine Mpf 0.5% 30 ML VIAL (11:33)
--- NOTE | 2023-09-01 11:33 | PCM.OPRPT ---
Report of Operation Date of Procedure: 09/01/23 Pre-Operative Diagnosis: Indirect right inguinal hernia Post-Operative Diagnosis: Indirect right inguinal hernia and umbilical skin tag Surgery/Procedure Performed:: Laparoscopic right inguinal herniorrhaphy: Bard 3D max extra-large mesh, lot [id number], reference [id number], expiry date 02/25/2028 Secure strap Lot [id number] ,expiry date 925 Amputation umbilical skin tag Description of Surgical Findings:: Timeout informed consent was obtained. 62-year-old gentleman was taken to the operating placement table and 1 general endotracheal ovation esthesia. Ancef 2 g were given intravenously. 0.5% Marcaine was used as local aesthetic throughout the procedure a total of 30 cc was used. The skin sites were Pedro size. Upon prepping the patient a pain parent there was a significant amount of the lymph debris within the umbilicus and that appeared to be affected by an umbilical skin tag. I made an infraumbilical incision just inferior to this placed holding sutures of 0 Vicryl and gained access with a Veress needle the abdomen was insufflated with CO2 to a pressure of 10 mmHg pressure. 10 mm trocar inserted. 10 mm laparoscope inserted. No internal trocar injuries. Under direct visitation 5 mm ports were placed in the right and left lower quadrants. Under laparoscopic visualization a right ilioinguinal nerve block was performed. The peritoneum superior lateral to the internal ring was incised carried medially the peritoneum was then completely dissected free. Quite a sizable hernia sac was encountered and this was carefully freed from its adherence to the cremasteric fibers. The direct space indirect space and femoral area clearly identified. A Bard 3D max extra-large mesh was placed on the right it nicely covered the direct indirect and femoral areas and it was secured laterally superiorly and medially with secure strap. Excellent positioning was felt to have been achieved. The peritoneum was then approximated to itself with secure strap and Hem-o-yasmine clips. Complete obliteration of the mesh was achieved. The abdomen was allowed to deflated the CO2. The fascia at the umbilicus approximated with [id number] suture of 0 Vicryl. Skin edges approximated opted for Monocryl. The skin tag at the umbilicus was sharply excised and submitted as a specimen. The base was treated with light touch of the electrocautery. Steri-Strips Telfa OpSite dressings applied. Sponge and instrument and needle counts were reported to certainly be correct. Blood loss minimal. Specimen skin tag. Drains none. Blood loss minimal. The patient was taken to recovery room in satisfied condition without apparent complication Darien Gil M.D., F.A.C.S. Surgeon: Darien Gil Type of Anesthesia: General and Local Anesthesiologist: Evon Chowdary
[2023-09-01] MEDS: HYDROcodone Bitartrate/Apap 5/325 Tablet PO (12:57)
== END 2023-09-01 14:06 | disposition home or self-care (01) ==
LOC: SDC 08:28 → AC 08:29
PROVIDERS: PCP Family Medicine; Referring Provider Surgery; Visit Provider Surgery
PROC: (CPT 49650; principal; 2023-09-01 10:25)
DX: K40.90 Unilateral inguinal hernia, without obstruction or gangrene, not specified as recurrent (principal); D23.5 Other benign neoplasm of skin of trunk; I10 Essential (primary) hypertension; E78.00 Pure hypercholesterolemia, unspecified; Z79.899 Other long term (current) drug therapy; Z87.891 Personal history of nicotine dependence
CPT/HCPCS: 49650; 11200; 00830; 36415; 80053; 80061; 84153; 85027; 86787; 88305; 93005; J7120; C1781; G0103; J2405

== ENCOUNTER → 2025-01-13 | Outpatient (CLI) | payer OTHER, SELFPAY ==
[2025-01-13 10:45] LABS: Color, Urine Yellow (Yellow); Glucose, Dipstick Normal (Normal); Ketone-Dipstick Negative (Negative); Leukocyte Esterase-Dipstick Negative /ul (Negative); Nitrite-Dipstick Negative (Negative); Occult Blood-Urine Negative /ul (Negative); Protein-Dipstick Negative (Negative); Specific Gravity, Urine 1.010 (1.002-1.030); Urine Bilirubin Dipstick Negative (Negative)
[2025-01-13 11:01] LABS: Creatinine, Urine (random) 53.20 mg/dL (39.00-259.00); Microalbumin,Random Urine < 12.0 mg/L (<20 mg/L)
--- OUTSIDE RECORDS SUMMARY | 2025-01-13 18:06 | XMS RPT_ITS | CCD ---
Author Organization [facility] ion [facility] Care Team Providers Care Vascular Ultrasound Technologist Name Role Phone Dr. Colin Grullon Primary Care Provider Dr. Colin Grullon Referring Provider Cestacy, Dr. Darien Cedillo Attending Provider Cestacy, Dr. Darien Cedillo Other Provider Dr. Colin Grullon Primary Care Provider [phone] Dr. Colin Grullon Referring Provider Cestacy, Dr. Darien Cedillo Attending Provider Cestacy, Dr. Darien Cedillo Referring Provider Cestacy, Dr. Darien Cedillo Other Provider Darien Gil Attending Unavailable Darien Gil Referring Unavailable Yadi Dre Primary Care Unavailable Kamran Mccloud Attending Unavailable Dre Grullon Referring [facility]available [facility] Unavailable Dre Grullon Referring Unavailable Regi Potts Attending Unavailable Darien Gil Attending Unavailable Dre Grullon Primary Care Unavailable Dre Grullon Referring Unavailable Darien Gil Referring Unavailable Vahe Oakley Attending Unavailgregoria [facility] Unavailable Darien Gil Attending Unavailable Darien Gil Referring Unavailable Dre Grullon Primary Care Unavailable Darien Gil Consulting Unavailable Allergies Allergy Classification Reported Allergen(s) Allergy Type Date of Onset Reaction(s) Facility (3 sources) Lactase Drug Allergy 07-28-2020 [facility] (1 source) tide Allergy to substance 07-28-2020 [facility] Work Phone: (3 sources) soap; Translations: [soap] Allergy to substance 10-11-2022 [facility] (1 source) Lactase Drug Allergy 09-11-2023 [facility] Repository Medications Current Medications Medication Drug Class(es) Dates Sig (Normalized) Sig (Original) amLODIPine 10 mg oral tablet (3 sources) Dihydropyridine Calcium Channel J Luis Start: 10-26-2018 take 10 mg by mouth once daily Amlodipine Active 10 MG PO DAILY October 25, 2018 11:00pm atorvastatin 20 mg oral tablet (6 sources) HMG-CoA Reductase Inhibitor Start: 07-28-2020 take 40 mg by mouth once daily Atorvastatin Active 40 MG PO DAILY July 28, 2020 8:57am Start: 07-02-2018 End: 07-28-2020 take 20 mg by mouth once daily Atorvastatin Discontinu ed 20 MG PO DAILY July 02, 2018 12:00am July 28, 2020 8:58am hydroCHLOROthiazide 25 mg oral tablet (3 sources) Thiazide Diuretic Start: 07-02-2018 take 25 mg by mouth once daily Hydrochlorothiazide Active 25 MG PO DAILY July 02, 2018 12:00am losartan potassium 100 mg oral tablet (3 sources) Angiotensin 2 Receptor J Luis Start: 07-28-2020 take 100 mg by mouth once daily Losartan Active 100 MG PO DAILY July 28, 2020 12:00am meloxicam 7.5 mg oral tablet (1 source) Nonsteroidal Anti-inflammator y Drug Start: 07-25-2022 take 7.5 mg by mouth once daily Meloxicam Active 7.5 MG PO DAILY July 25, 2022 1:00am Completed/Discontinued Medications Medication Drug Class(es) Dates Sig (Normalized) Sig (Original) [place] 9-Zvn-Qvw-Fish Oil (3 sources) Start: 10-26-2018 End: 07-25-2022 [place] 0-Ltu-Zgk-Fish Oil Discontinued 1 EACH PO DAILY October 25, 2018 11:00pm July 25, 2022 7:37am Start: 10-26-2018 End: 07-25-2022 [place] 8-Kjr-Lrg-Fish Oil Dis continued 1 EACH PO DAILY October 26, 2018 12:00am July 25, 2022 8:37am Start: 10-26-2018 [place] 3-Dha-Ep a-Fish Oil Active 1 EACH PO DAILY October 26, 2018 12:00am Problems Active Problems Problem Classification Problem Date Documented Da te Episodic/Chronic Administrative/social admission (1 source) Encounter for other administrative examinations; Translations: [Encounter for other administrative examinations] Onset: 02-03-2024 Episodic Disorders of lipid metabolism (1 source) Hyperlipidemia, unspecified; Translations: [Hyperlipidemia, unspecified] Onset: 2023 Chronic Other and unspecified benign neoplasm (2 sources) History of polyp of colon; Translations: [Personal history of colonic polyps] 07-25-2022 Episodic Other and unspecified benign neoplasm (1 source) Personal history of colonic polyps; Translations: [Personal history of colonic polyps] 07-25-2022 Episodic Other bone disease and musculoskeletal deformities (6 sources) Segmental and somatic dysfunction; Translations: [Segmental and somatic dysfunction of lumbar region] 10-27-2018 Episodic Spondylosis; intervertebral disc disorders; other back problems (3 sources) Lumbar radiculitis; Translations: [Radiculopathy, lumbar region] 10-27-2018 Episodic Past or Other Problems Problem Classification Problem Date Documented Da te Episodic/Chronic Abdominal hernia (4 sources) Right inguinal hernia ; Translations: [Unilateral inguinal hernia, without obstruction or gangrene, not specified as recurrent] Onset: 2023 08-25-2023 Episodic Other screening for suspected conditions (not mental disorders or infectious disease) (4 sources) Patient encounter status; Translations: [Encounter for screening for malignant neoplasm of intestinal tract, unspecified] Onset: 2023 10-27-2018 Episodic Unclassified (2 sources) history of finger surgery 01-16-2022 Results Test Name Value Interpretation Reference Range Facility Urgent Care Visit Reporton 0 02-03-2024 Urgent Care Visit Report [facility] [address], [address] [place], [place] [address] OFFICE VISIT Date of Service: 02/03/24 MR#: [id number] Acct: [id number] Name: POLINA KENT Rep #: [id number] : 1960 Provider: GEORGI Ma Age/Sex: 63/M Location: [facility] Status: Signed Intake Vital Signs 09/01/23 09:05 Height 5 ft 11 in Intake Visit Reasons: DOT PHYSICAL Chief Complaint: hernia f/u Allergies lactase (From Dairy Aid) Allergy (Mild, Verified 09/11/23 14:49) Rash soap Allergy (Mild, Verified 09/11/23 14:49) Rash PFSH Medical History (Updated 02/03/24 @ 14:29 by Kamran LAUREANO, PA) Encounter for 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 required by 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 Transportation (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) Wears glasses Back pain Chewing tobacco use History of colon polyps history of finger surgery High cholesterol Hypertension Surgical History S/P right inguinal hernia repair Hx of colonoscopy History of vasectomy History of hernia repair Family History Mother Hypertension Father Hyperlipidemia sarcoid tumor S/P triple vessel bypass Aunt Bone cancer Aunt Breast cancer Uncle Diabetes Grandfather Myocardial infarction Other Cancer Social History household members: spouse and children housing: house current occupational status: employed Smoking Status: Former smoker alcohol intake: current alcohol intake frequency: holidays/special occasions only substance use type: does not use 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 do you feel safe at home: Yes HPI HPI Chief Complaint: hernia f/u Details: POLINA KENT, is a 63 M who presents to the office today for Office Procedures Physical Exam Coding PE Coding DOT PE: Yes Coding Level of Care Code No Charge Diagnoses Encounter for examination required by 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 Transportation (DOT) Z02.89 Assessment and Plan Assessment and Plan (1) Encounter for examination required by 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 Transportation (DOT): Status: Acute Plan Details Goals Barriers: Goals Decrease pain and inflammation Improve ability to stand for longer periods Improve ability to perform ADLs Barriers Repetitive use 02/03/24 1429 Date Kamran LAUREANO Cosigner Signature: Date (if applicable) CC: Normal [facility] Surgery Visit Reporton 09-10 Surgery Visit Report [facility] [address] [place] [address] OFFICE VISIT Date of Service: 09/11/23 MR#: [id number] Acct: [id number] Name: POLINA KENT Rep #: [id number] : 1960 Provider: EDA mendiola Age/Sex: 63/M Location: [facility] Status: Signed Intake Vital Signs 09/01/23 09:05 Height 5 ft 11 in Intake Visit Reasons: HERNIA - RC 3-4 Chief Complaint: hernia f/u Stem Lead Former Required: No Is patient in pain?: No Allergies lactase [From Dairy Aid] Allergy (Mild, Verified 09/11/23 14:49) Rash soap Allergy (Mild, Verified 09/11/23 14:49) Rash Medications hydrochlorothiazide 25 mg tablet 25 mg PO DAILY bp 07/02/18 [History Confirmed 09/11/23] amlodipine 10 mg tablet 10 mg PO DAILY 10/26/18 [History Confirmed 09/11/23] atorvastatin 20 mg tablet 40 mg PO DAILY cholesterol 07/28/20 [History Confirmed 09/11/23] losartan 100 mg tablet 100 mg PO DAILY 07/28/20 [History Confirmed 09/11/23] Subjective Details: Patient is a 63 y/o M I am following s/p laparoscopic right inguinal hernia repair with mesh and umbilical skin tag removal by Dr. Gil on 09/01/23. Patient tolerated the procedure well. Pathology demonstrated intradermal nevus. He denies any incisional pain/discomfort at this time. He denies nausea, vomiting, fever since the procedure. He notes appetite has returned to normal along with his bowel movements. He is very pleased with the surgery experience overall. Objective Details: Abdomen- soft, non-tender. ecchymosis noted over the left lateral incision. Incisions c/d/i. No erythema or signs of infection noted. Steri-strips intact Coding Level of Care Code Global Post Op Diagnoses Right inguinal hernia K40.90 Intradermal nevus D23.9 [facility] Medical History Back pain Chewing tobacco use High cholesterol History of colon polyps history of finger surgery Hypertension Wears glasses Surgical History History of hernia repair History of vasectomy Hx of colonoscopy S/P right inguinal hernia repair Family History Mother Hypertension Father Hyperlipidemia sarcoid tumor S/P triple vessel bypass Aunt Bone cancer Aunt Breast cancer Uncle Diabetes Grandfather Myocardial infarction Other Cancer Social History household members: spouse and children housing: house current occupational status: employed Smoking Status: Former smoker alcohol intake: current alcohol intake frequency: holidays/special occasions only substance use type: does not use 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 Colin Grullon MD Normal [facility] Discharge Instructionon Discharge Instruction [facility] Medical Records Department [address] [place] [address] Instructions for Home/Discharge Instructions 09/01/23 0944 MR#: [id number] Acct: [id number] Name: POLINA KENT Rep #: [id number] : 1960 62 From: Darien Gil MD PCP: Dr. Colin Grullon MD Status:REG [facility] [place]charge Instructions Procedure General Surgery Diet Discharge Diet: Light diet - advance as tolerated (if you have questions about your diet instructions, please talk to you doctor.) Activity Discharge Activity: May Not Drive (for 3-5 days or while taking narcotic pain medicine.) May shower in (days): 1 Lifting Restrictions: 10 pounds Dressing / Incision Call your doctor if your incision/area has: Continuous Slow Oozing, Sudden Increased Bleeding, Increased Pain/ Swelling, Increased Redness and Foul Smelling Discharge Call your doctor if you observe: Fever of 101 or Higher Suture Line Care: Avoid Pulling/Pushing and Avoid Pinching/Bending Additional Dressing/Incision Instructions:: Change or remove dressing in 4 days. Leave steri-strips in place for 1 week. Follow Up Care Please Follow Up With: Darien Gil MD When: Call [phone] to make an appointment to be seen in about 10 days. Test Results: Test results from this visit will be discussed in further detail at your follow-up appointment, if applicable. Discharge Plan Admission Attending Provider: Darien Gil Primary Care Provider: Colin Grullon Discharge Orders/Prescriptions Prescriptions: No Action hydrochlorothiazide 25 mg tablet 25 mg PO DAILY atorvastatin 20 mg tablet 40 mg PO DAILY losartan 100 mg tablet 100 mg PO DAILY amlodipine 10 MG tablet 10 mg PO DAILY Referrals / Follow Up: Colin Grullon MD [Primary Care Provider] - Disposition Disposition (needs filled in before D/C Order can be placed): Home, Self Care 09/01/23 1348 Darien Gil MD CC: Dr. Colin Grullon MD Signed Normal [facility] Operative Reporton Operative Report [facility] Medical Records Department [address] [place] [address] Operative Report 09/01/23 1133 MR#: [id number] Acct: [id number] Name: POLINA KENT Rep #: [id number] : 1960 62 From: Darien Gil MD PCP: Dr. Colin Grullon MD Status:REG [facility] Location: [place] [address] Report of Operation Date of Procedure: 09/01/23 Pre-Operative Diagnosis: Indirect right inguinal hernia Post-Operative Diagnosis: Indirect right inguinal hernia and umbilical skin tag Surgery/Procedure Performed:: Laparoscopic right inguinal herniorrhaphy: Bard 3D max extra-large mesh, lot [id number], reference [id number], expiry date 02/25/2028 Secure strap Lot [id number] ,expiry date 92 Amputation umbilical skin tag Description of Surgical Findings:: Timeout informed consent was obtained. 62-year-old gentleman was taken to the operating placement table and 1 general endotracheal ovation esthesia. Ancef 2 g were given intravenously. 0.5% M arcaine was used as local aesthetic throughout the procedure a total of 30 cc was used. The skin sites were Pedro size. Upon prepping the patient a pain parent there was a significant amount of the lymph debris within the umbilicus and that appeared to be affected by an umbilical skin tag. I made an infraumbilical incision just inferior to this placed holding sutures of 0 Vicryl and gained access with a Veress needle the abdomen was insufflated with CO2 to a pressure of 10 mmHg pressure. 10 mm trocar inserted. 10 mm laparoscope inserted. No internal trocar injuries. Under direct visitation 5 mm ports were placed in the right and left lower quadrants. Under laparoscopic visualization a right ilioinguinal nerve block was performed. The peritoneum superior lateral to the internal ring was incised carried medially the peritoneum was then completely dissected free. Quite a sizable hernia sac was encountered and this was carefully freed from its adherence to the cremasteric fibers. The direct space indirect space and femoral area clearly identified. A Bard 3D max extra-large mesh was placed on the right it nicely covered the direct indirect and femoral areas and it was secured laterally superiorly and medially with secure strap. Excellent positioning was felt to have been achieved. The peritoneum was then approximated to itself with secure strap and Hem-o-yasmine clips. Complete obliteration of the mesh was achieved. The abdomen was allowed to deflated the CO2. The fascia at the umbilicus approximated with ejqpct-mg-cxjkw suture of 0 Vicryl. Skin edges approximated opted for Monocryl. The skin tag at the umbilicus was sharply excised and submitted as a specimen. The base was treated with light touch of the electrocautery. Steri-Strips Telfa OpSite dressings applied. Sponge and instrument and needle counts were reported to certainly be correct. Blood loss minimal. Specimen skin tag. Drains none. Blood loss minimal. The patient was taken to recovery room in satisfied condition without apparent complication Darien Gil M.D., F.A.C.S. Surgeon: Darien Gil Type of Anesthesia: General and Local Anesthesiologist: Evon Chowdary 09/01/23 1138 Cosigner Signature (if applicable): CC: Dr. Colin Grullon MD; Dr. Darien Gil MD Signed Normal [facility] Surgery Specimen Level Marty 09-01-2023 Surgery Specimen Level IV Patient Age/Sex Location Account Attending Physician POLINA KENT 62/M [facility] [id number] Dr. Darien Gil MD Specimen: [id number] Received: 09/01/23 Status: ANAM Spivey Num: [id number] Spec Type: Lesion Subm Dr: Dr. Darien Gil MD HEADER OPERATION: Laparoscopic right inguinal hernia repair with mesh, amputation PRE-OP DIAGNOSIS: Inguinal hernia of left side TISSUE SUBMITTED: Umbilical skin tag ---- MICROSCOPIC DIAGNOSIS Umbilical skin lesion, excision: Intradermal nevus. CHIKIS:ab 09/03/2023 MICROSCOPIC DESCRIPTION Slides are reviewed. GROSS DESCRIPTION Received in fixative is one container labeled with the patient's name and designated umbilical skin tag. The specimen consists of a piece of holt-brown skin measuring 0.7 x 0.2 x 0.2 cm. The entire specimen is submitted in one cassette. / CHIKIS:ab 09/02/2023 TC:1 CPT: 12526 ---- Patient Age/Sex Location Account Attending Physician ---- POLINA KENT 62/M [facility] [place] [id number] Dr. Darien Gil MD ---- Signed (signature on file) Dr. Dominguez Cuellar MD 09/03/23 1418 ---- Normal [facility] Comment on above: Performed By: #### P JIHAN #### [facility] Laboratory [facility] [place] [address] [place], [address] V-Zoster IgG (Immunity)on V ZOSTER IgG 238 index Normal Immune >165 [facility] Comment on above: Result Comment: Nega tive <135 Equivocal 135 - 165 Positive >165 A positive result generally indicates exposure to the pathogen or administration of specific immunoglobulins, but it is not indication of active infection or stage of disease. Performed at: - [facility] [id number] [address] Painter Helper: Tani Beauchamp PhD, Phone: [phone] Performed By: #### L 3400.0000 #### [facility] [address] [place] [address], [address] 12 Lead EKGon 08-29-2023 12 Lead EKG [facility] [address] [place] [address] 12 Lead EKG 08/29/23 0709 MR#: [id number] Acct: [id number] Name: POLINA KENT Rep #: [id number] : 1960 62 From: Vahe Oakley MD Attending Dr: Dr. Darien Gil MD Status: [place] [facility] Ordering Dr: Darien Gil MD Date: 08/29/23 Location: [facility] Sex: M C Admitted: Test Reason : PREOP Blood Pressure : / mmHG Vent. Rate : 077 BPM Atrial Rate : 077 BPM P-R Int : 150 ms QRS Dur : 100 ms QT Int : 380 ms P-R-T Axes : 039 081 067 degrees QTc Int : 430 ms Normal sinus rhythm Normal ECG Confirmed by EDITH CHRISTIANSON, HORACIO ([id number]), health editor NEELIMA LEZAMA ([id number]) on 09/01/2023 6:53:59 AM Referred By: Darien Gil Confirmed By:TASHIA OAKLEY MD 09/01/23 0654 Date Vahe Oakley MD CC: Dr. Colin Grullon MD; Dr. Darien Gil MD Signed Normal [facility] Basic Metabolic Profile (BMP )on 08-29-2023 BUN Normal 7-18 [facility] Comment on above: Result Comment: CMP ORDERED SEE RESULTS Performed By: #### L 500.2500, L100.0500 #### [facility] [address] [place], [address] BUN/CRE Normal 10-20 [facility] Comment on above: Result Comment: CMP ORDERED SEE RESULTS Performed By: #### L 500.2500, L100.0500 #### [facility] [address] [place], [address] CA,Total Normal 8.5-10.1 [facility] Comment on above: Result Comment: CMP ORDERED SEE RESULTS Performed By: #### L 500.2500, L100.0500 #### [facility] [address] [place], [address] CL Normal 98-107 [facility] Comment on above: Result Comment: CMP ORDERED SEE RESULTS Performed By: #### L 500.2500, L100.0500 #### [facility] [address] [place], [address] CO2 Normal 21.0-32.0 [facility] Comment on above: Result Comment: CMP ORDERED SEE RESULTS Performed By: #### L 500.2500, L100.0500 #### [facility] [address] [place], [address] CREAT,SERUM Normal 0.70-1.30 [facility] Comment on above: Result Comment: CMP ORDERED SEE RESULTS Performed By: #### L 500.2500, L100.0500 #### [facility] [address] [place], [address] EST GFR Normal >60 [facility] Comment on above: Result Comment: CMP ORDERED SEE RESULTS Performed By: #### L 500.2500, L100.0500 #### [facility] [address] [place], [address] EST GFR - AA Normal >60 [facility] Comment on above: Result Comment: CMP ORDERED SEE RESULTS Performed By: #### L 500.2500, L100.0500 #### [facility] [address] [place], [address] GAP Normal 5-15 [facility] Comment on above: Result Comment: CMP ORDERED SEE RESULTS Performed By: #### L 500.2500, L100.0500 #### [facility] [address] [place], [address] GLU Normal 74-106 [facility] Comment on above: Result Comment: CMP ORDERED SEE RESULTS Performed By: #### L 500.2500, L100.0500 #### [facility] [address] [place], [address] Potassium Normal 3.5-5.1 [facility] Comment on above: Result Comment: CMP ORDERED SEE RESULTS Performed By: #### L 500.2500, L100.0500 #### [facility] [address] [place], [address] Basic Metabolic Profile (BMP) Normal 136-145 [facility] Comment on above: Result Comment: CMP ORDERED SEE RESULTS Performed By: #### L 500.2500, L100.0500 #### [facility] [address] [place], [address] Basophil percentageOrdered B y: Colin Grullon on 08-29-2023 Bilirubin [Mass/Vol] 1.10 mg/dL 0.20-1.00 [facility] Comment on above: For patients on eltr ombopag therapy, use of Dimension [place] TBIL is not recommended. Chloride [Moles/Vol] 106 mmol/L 98-107 [facility] Cholesterol [Mass/Vol] 178 mg/dL <200 [facility] Comment on above: <200 mg/dL Desirable 200-240 mg/dL Borderline >240 mg/dL High Risk Glucose [Mass/Vol] 105 mg/dL 74-106 [facility] Comment on above: Fasting Glucose resu lt from 100 to 125 mg/dL suggests IMPAIRED HOMEOSTASIS per A.D.A. criteria. Potassium [Moles/Vol] 3.8 mmol/L 3.5-5.1 [facility] Protein [Mass/Vol] 7.9 g/dL 6.4-8.2 [facility] Sodium [Moles/Vol] 138 mmol/L 136-145 [facility] Triglyceride [Mass/Vol] 112 mg/dL <199 [facility] Comment on above: The drugs N-Acetylcy steine and Metamizole may falsely depress this assay.Serum Triglycerides Reference Interval Normal <150 mg/dL Borderline high 150 - 199 mg/dL High 200 - 499 mg/dL Very High > or = 500 mg/dL Basophil percentageOrdered B y: Darien Louise on 08-29-2023 Hemoglobin (Bld) [Mass/Vol] 14.7 g/dL 13.0-16.5 [facility] WBC (Bld) [#/Vol] 5.8 10*3/uL 4.4-11.0 [facility] CBC-Complete Blood Cnt No Di ffon 08-29-2023 Erythrocyte distribution width (RBC) [Ratio] 12.4 % Normal 11.6-14.6 [facility] Comment on above: Order Comment: SEE Jabari KULKARNI RESULTS CMP ORDERED Performed By: #### L 500.2500, L100.0500 #### [facility] [address] [place], [address] Hematocrit (Bld) [Volume fraction] 43.2 % Normal 40-54 [facility] Comment on above: Order Comment: SEE Jabari KULKARNI RESULTS CMP ORDERED Performed By: #### L 500.2500, L100.0500 #### [facility] [address] [place], [address] Hemoglobin (Bld) [Mass/Vol] 14.7 g/dL Normal 13.0-16.5 [facility] Comment on above: Order Comment: SEE Jabari KULKARNI RESULTS CMP ORDERED Performed By: #### L 500.2500, L100.0500 #### [facility] [address] [place], [address] MCH (RBC) [Entitic mass] 30.3 pg Normal 27.0-32.0 [facility] Comment on above: Order Comment: SEE R NIKIEY RESULTS CMP ORDERED Performed By: #### L 500.2500, L100.0500 #### [facility] [address] [place], [address] MCHC (RBC) [Mass/Vol] 34.0 g/dL Normal 32-36 [facility] Comment on above: Order Comment: SEE R ANNEY RESULTS CMP ORDERED Performed By: #### L 500.2500, L100.0500 #### [facility] [address] [place], [address] MCV (RBC) [Entitic vol] 89.1 fL Normal 80-94 [facility] Comment on above: Order Comment: SEE R ANNEY RESULTS CMP ORDERED Performed By: #### L 500.2500, L100.0500 #### [facility] [address] [place], [address] Platelet mean volume (Bld) [Entitic vol] 11.3 fL Normal 6.2-12.0 [facility] Comment on above: Order Comment: SEE R ANNEY RESULTS CMP ORDERED Performed By: #### L 500.2500, L100.0500 #### [facility] [address] [place], [address] Platelets (Bld) [#/Vol] 251 10*3/uL Normal 150-450 [facility] Comment on above: Order Comment: SEE R ANNEY RESULTS CMP ORDERED Performed By: #### L 500.2500, L100.0500 #### [facility] [address] [place], [address] RBC (Bld) [#/Vol] 4.85 10*6/uL Normal 4.6-6.2 [facility] Comment on above: Order Comment: SEE R ANNEY RESULTS CMP ORDERED Performed By: #### L 500.2500, L100.0500 #### [facility] [address] [place], [address] RDW SD 40.5 fl Normal 35.1-43.9 [facility] Comment on above: Order Comment: SEE R ANNEY RESULTS CMP ORDERED Performed By: #### L 500.2500, L100.0500 #### [facility] [address] [place], [address] WBC (Bld) [#/Vol] 5.8 10*3/uL Normal 4.4-11.0 [facility] Comment on above: Order Comment: SEE R ANNEY RESULTS CMP ORDERED Performed By: #### L 500.2500, L100.0500 #### [facility] [address] [place], [address] Comprehensive Metabolic Prof ilon 08-29-2023 Albumin [Mass/Vol] 4.2 g/dL Normal 3.2-5.0 [facility] Comment on above: Order Comment: Order Date: 08/05/23 Order Info: [id number] - CMP Order Info: [id number] - LIPID Order Info: [id number] - PSA Performed By: #### L 500.4050, L500.4100, L501.9910 #### [facility] [address] [place], [address] Albumin/Globulin [Mass ratio] 1.1 {ratio} Normal 0.9-2.4 [facility] Comment on above: Order Comment: Order Date: 08/05/23 Order Info: [id number] - CMP Order Info: [id number] - LIPID Order Info: [id number] - PSA Performed By: #### L 500.4050, L500.4100, L501.9910 #### [facility] [address] [place], [address] ALK P 78 U/L Normal 45-117 [facility] Comment on above: Order Comment: Order Date: 08/05/23 Order Info: [id number] - CMP Order Info: [id number] - LIPID Order Info: [id number] - PSA Performed By: #### L 500.4050, L500.4100, L501.9910 #### [facility] [address] [place], [address] ALT [Catalytic activity/Vol] 19 U/L Normal 16-61 [facility] Comment on above: Order Comment: Order Date: 08/05/23 Order Info: [id number] - CMP Order Info: [id number] - LIPID Order Info: [id number] - PSA Performed By: #### L 500.4050, L500.4100, L501.9910 #### [facility] [address] [place], [address] AST [Catalytic activity/Vol] 13 U/L Low 15-37 [facility] Comment on above: Order Comment: Order Date: 08/05/23 Order Info: [id number] - CMP Order Info: [id number] - LIPID Order Info: [id number] - PSA Performed By: #### L 500.4050, L500.4100, L501.9910 #### [facility] [address] [place], [address] Bilirubin [Mass/Vol] 1.10 mg/dL High 0.20-1.00 [facility] Comment on above: Order Comment: Order Date: 08/05/23 Order Info: [id number] - CMP Order Info: [id number] - LIPID Order Info: [id number] - PSA Result Comment: For patients on eltrombopag therapy, use of Dimension [place] TBIL is not recommended. Performed By: #### L 500.4050, L500.4100, L501.9910 #### [facility] [address] [place], [address] BUN/CRE 17.5 RATIO Normal 10-20 [facility] Comment on above: Order Comment: Order Date: 08/05/23 Order Info: [id number] - CMP Order Info: [id number] - LIPID Order Info: [id number] - PSA Performed By: #### L 500.4050, L500.4100, L501.9910 #### [facility] [address] [place], [address] CA,Total 9.4 mg/dL Normal 8.5-10.1 [facility] Comment on above: Order Comment: Order Date: 08/05/23 Order Info: [id number] - CMP Order Info: [id number] - LIPID Order Info: [id number] - PSA Performed By: #### L 500.4050, L500.4100, L501.9910 #### [facility] [address] [place], [address] Chloride [Moles/Vol] 106 mmol/L Normal 98-107 [facility] Comment on above: Order Comment: Order Date: 08/05/23 Order Info: [id number]- - CMP Order Info: [id number] - LIPID Order Info: [id number] - PSA Performed By: #### L 500.4050, L500.4100, L501.9910 #### [facility] [address] [place], [address] CO2 [Moles/Vol] 27.0 mmol/L Normal 21.0-32.0 [facility] Comment on above: Order Comment: Order Date: 08/05/23 Order Info: [id number] - CMP Order Info: [id number] - LIPID Order Info: [id number] - PSA Performed By: #### L 500.4050, L500.4100, L501.9910 #### [facility] [address] [place], [address] Creatinine [Mass/Vol] 1.03 mg/dL Normal 0.70-1.30 [facility] Comment on above: Order Comment: Order Date: 08/05/23 Order Info: 86-1 - CMP Order Info: [id number] - LIPID Order Info: [id number] - PSA Result Comment: The validity of the calculated GFR GFRAA in patients over 70 years has not been determined. Clinical correlation is essential. Performed By: #### L 500.4050, L500.4100, L501.9910 #### [facility] [address] [place], [address] EST GFR - AA 94 mL/min Normal >60 [facility] Comment on above: Order Comment: Order Date: 08/05/23 Order Info: [id number]- - CMP Order Info: [id number] - LIPID Order Info: [id number] - PSA Result Comment: Afri can [place]eg[place] GFR Calc Performed By: #### L 500.4050, L500.4100, L501.9910 #### [facility] [address] [place], [address] GAP 5 Normal 5-15 [facility] Comment on above: Order Comment: Order Date: 08/05/23 Order Info: [id number]- - CMP Order Info: [id number] - LIPID Order Info: [id number] - PSA Performed By: #### L 500.4050, L500.4100, L501.9910 #### [facility] [address] [place], [address] GFR/1.73 sq M.predicted among non-blacks MDRD (S/P/Bld) [Vol rate/Area] 78 mL/min/{1.73_m2} Normal >60 [facility] Comment on above: Order Comment: Order Date: 08/05/23 Order Info: [id number] - CMP Order Info: [id number] - LIPID Order Info: [id number] - PSA Result Comment: Non- GFR Calc Performed By: #### L 500.4050, L500.4100, L501.9910 #### [facility] [address] [place], [address] Globulin (S) [Mass/Vol] 3.7 g/dL Normal 2.2-4.2 [facility] Comment on above: Order Comment: Order Date: 08/05/23 Order Info: [id number] - CMP Order Info: - LIPID Order Info: 1 - PSA Performed By: #### L 500.4050, L500.4100, L501.9910 #### [facility] [address] [place], [address] Glucose [Mass/Vol] 105 mg/dL Normal 74-106 [facility] Comment on above: Order Comment: Order Date: 08/05/23 Order Info: [id number]- - CMP Order Info: - LIPID Order Info: [id number] - PSA Result Comment: Fast ing Glucose result from 100 to 125 mg/dL suggests IMPAIRED HOMEOSTASIS per A.D.A. criteria. Performed By: #### L 500.4050, L500.4100, L501.9910 #### [facility] [address] [place], [address] Potassium [Moles/Vol] 3.8 mmol/L Normal 3.5-5.1 [facility] Comment on above: Order Comment: Order Date: 08/05/23 Order Info: [id number] - CMP Order Info: [id number] - LIPID Order Info: [id number] - PSA Performed By: #### L 500.4050, L500.4100, L501.9910 #### [facility] [address] [place], [address] Sodium [Moles/Vol] 138 mmol/L Normal 136-145 [facility] Comment on above: Order Comment: Order Date: 08/05/23 Order Info: [id number] - CMP Order Info: [id number] - LIPID Order Info: [id number] - PSA Performed By: #### L 500.4050, L500.4100, L501.9910 #### [facility] [address] [place], [address] T PROT 7.9 g/dL Normal 6.4-8.2 [facility] Comment on above: Order Comment: Order Date: 08/05/23 Order Info: [id number] - CMP Order Info: [id number] - LIPID Order Info: [id number] - PSA Performed By: #### L 500.4050, L500.4100, L501.9910 #### [facility] [address] [facility] [place], [place], [address] Urea nitrogen [Mass/Vol] 18 mg/dL Normal 7-18 [facility] Comment on above: Order Comment: Order Date: 08/05/23 Order Info: [id number] - CMP Order Info: [id number] - LIPID Order Info: [id number] - PSA Performed By: #### L 500.4050, L500.4100, L501.9910 #### [facility] [address] [place], [place], [address] Determination of erythrocyte mean corpuscular volume (MCV)Ordered By: Darien Gil on 08-29-2023 MCV (RBC) [Entitic vol] 89.1 fL 80-94 [facility] Erythrocyte distribution wid th ratioOrdered By: Darien Gil on 08-29-2023 Erythrocyte distribution width (RBC) [Ratio] 12.4 % 11.6-14.6 [facility] Erythrocyte distribution wid th standard deviationOrdered By: Darien Gil on 08-29-2023 Erythrocyte distribution width (RBC) [Entitic vol] 40.5 fL 35.1-43.9 [facility] Hematocrit Auto (Bld) [Volum e fraction]Ordered By: Darien Gil on 08-29-2023 Hematocrit (Bld) [Volume fraction] 43.2 % 40-54 [facility] - Chemistry and C hemistry - challengeOrdered By: Colin Grullon on 08-29-2023 Albumin/Globulin [Mass ratio] 1.1 {ratio} 0.9-2.4 [facility] ALP [Catalytic activity/Vol] 78 U/L 45-117 [facility] ALT [Catalytic activity/Vol] 19 U/L 16-61 [facility] Cholesterol in HDL [Mass/Vol] 43 mg/dL >40 [facility] Comment on above: The drugs N-Acetylcy steine and Metamizole may falsely depress this assay. Reference Range HDL <40 mg/dL Low HDL Cholesterol HDL >or= 60 mg/dL High HDL Cholesterol Cholesterol in LDL [Mass/Vol] 113 mg/dL 0-130 [facility] CO2 [Moles/Vol] 27.0 mmol/L 21.0-32.0 [facility] Globulin (S) [Mass/Vol] 3.7 g/dL 2.2-4.2 [facility] Urea nitrogen/Creatinine [Mass ratio] 17.5 mg/mg 10-20 [facility] - Hematology and Cell countsOrdered By: Darien Gil on 08-29-2023 MCH (RBC) [Entitic mass] 30.3 pg 27.0-32.0 [facility] MCHC (RBC) [Mass/Vol] 34.0 g/dL 32-36 [facility] Platelet mean volume (Bld) [Entitic vol] 11.3 fL 6.2-12.0 [facility] Platelets (Bld) [#/Vol] 251 10*3/uL 150-450 [facility] Lipid Profileon 08-29-2023 Cholesterol [Mass/Vol] 178 mg/dL Normal 200 [facility] Comment on above: Order Comment: Order Date: 08/05/23 Order Info: [id number] - CMP Order Info: [id number] - LIPID Order Info: [id number] - PSA Result Comment: <200 mg/dL Desirable 200-240 mg/dL Borderline >240 mg/dL High Risk Performed By: #### L 500.4050, L500.4100, L501.9910 #### [facility] [address] [place], [place], [address] Cholesterol in HDL [Mass/Vol] 43 mg/dL Normal [facility] Comment on above: Order Comment: Order Date: 08/05/23 Order Info: [id number] - CMP Order Info: [id number] - LIPID Order Info: [id number] - PSA Result Comment: The drugs N-Acetylcysteine and Metamizole may falsely depress this assay. Reference Range HDL <40 mg/dL Low HDL Cholesterol HDL >or= 60 mg/dL High HDL Cholesterol Performed By: #### L 500.4050, L500.4100, L501.9910 #### [facility] [address] [place], [address] Cholesterol in LDL [Mass/Vol] 113 mg/dL Normal 0-130 [facility] Comment on above: Order Comment: Order Date: 08/05/23 Order Info: [id number] - CMP Order Info: [id number] - LIPID Order Info: [id number] - PSA Performed By: #### L 500.4050, L500.4100, L501.9910 #### [facility] [address] [place], [address] Cholesterol in VLDL [Mass/Vol] 22 mg/dL Normal 5-40 [facility] Comment on above: Order Comment: Order Date: 08/05/23 Order Info: [id number] - CMP Order Info: [id number] - LIPID Order Info: [id number] - PSA Performed By: #### L 500.4050, L500.4100, L501.9910 #### [facility] [address] [place], [address] Triglyceride [Mass/Vol] 112 mg/dL Normal [facility] Comment on above: Order Comment: Order Date: 08/05/23 Order Info: [id number] - CMP Order Info: [id number] - LIPID Order Info: [id number] - PSA Result Comment: The drugs N-Acetylcysteine and Metamizole may falsely depress this assay. Serum Triglycerides Reference Interval Normal <150 mg/dL Borderline high 150 - 199 mg/dL High 200 - 499 mg/dL Very High > or = 500 mg/dL Performed By: #### L 500.4050, L500.4100, L501.9910 #### [facility] [address] [place], [address] No Panel InformationOrdered By: Colin Grullon on 08-29-2023 Estimated GFR (MDRD) Amer 94 mL/min >60 [facility] Comment on above: GFR Calc Estimated GFR (MDRD) Non-Af Amer 78 mL/min >60 [facility] Comment on above: Non- GFR Calc Prostate Specific Antigen Screen 2.78 ng/mL 0.00-4.00 [facility] Comment on above: This test was perfor med using the TPSA assay method for the[employer] chemistry system. Values obtained with differentassay methods cannot be used interchangably.When changing PSA assays in the course of monitoring apatient, additional sequential testing should be carriedout to confirm baseline values. VLDL Cholesterol 22 mg/dL 5-40 [facility] PSA,Total - Annual Screenon 08-29-2023 PSA,TOT SCREEN 2.78 ng/mL Normal 0.00-4.00 [facility] Comment on above: Order Comment: Order Date: 08/05/23 Order Info: [id number] - CMP Order Info: [id number] - LIPID Order Info: [id number] - PSA Result Comment: This test was performed using the TPSA assay method for the [employer] chemistry system. Values obtained with different assay methods cannot be used interchangably. When changing PSA assays in the course of monitoring a patient, additional sequential testing should be carried out to confirm baseline values. Performed By: #### L 500.4050, L500.4100, L501.9910 #### [facility] [address] [place], [place], [address] RBC Auto (Bld) [#/Vol]Ordere d By: Darien Gil on 08-29-2023 RBC (Bld) [#/Vol] 4.85 10*6/uL 4.6-6.2 [facility] Serum Varicella zoster virus IgG antibody assay by immunoassay (units/volume)Ordered By: Colin Grullon on 08-29-2023 VZV IgG IA Qn (S) 238 index Immune >165 [facility] Comment on above: Negative <135 Equivo laura 135 - 165 Positive >165A positive result generally indicates exposure to thepathogen or administration of specific immunoglobulins,but it is not indication of active infection or stageof disease.Performed at: [address] [id number] Director: Tani Beauchamp PhD, Phone: [phone] Serum or plasma calcium yue urement (mass/volume)Ordered By: Colin Grullon on 08-29-2023 Calcium [Mass/Vol] 9.4 mg/dL 8.5-10.1 [facility] Serum or plasma creatinine m easurement (mass/volume)Ordered By: Colin Grullon on 08-29-2023 Creatinine [Mass/Vol] 1.03 mg/dL 0.70-1.30 [facility] Comment on above: The validity of the calculated GFR & GFRAA in patients over 70 years has not been determined. Clinical correlation is essential. Serum or plasma urea nitroge n measurement (mass/volume)Ordered By: Colin Grullon on 08-29-2023 Urea nitrogen [Mass/Vol] 18 mg/dL 7-18 [facility] Thin prep Papanicolaou smear with manual screeningOrdered By: Colin Grullon on 08-29-2023 Thin prep Papanicolaou smear with manual screening 4.2 g/dL 3.2-5.0 [facility] Thin prep Papanicolaou smear with manual screening 13 U/L 15-37 [facility] Thin prep Papanicolaou smear with manual screening 5 5-15 [facility] Surgery Visit Reporton 08-25 Surgery Visit Report [facility] [facility] [address] [place] [address]. [address] [place] [address] OFFICE VISIT Date of Service: 08/25/23 MR#: [id number] Acct: [id number] Name: POLINA KENT Rep #: [id number] 2 : 1960 Provider: Dr. Darien thayer MD Age/Sex: 62/M Location: [facility] Status: Signed Intake Vital Signs 10/11/22 07:20 08/25/23 09:05 Height 6 ft 6 ft Weight: 198 lb 8 oz BMI 26.9 BP 131/89 H Blood Pressure Location Rt brachial Position Sitting Respiration 17 Pulse 73 Pulse Source Monitor Temp 97.7 F L Temp Source Temporal Pulse Oximetry (%) 98 Oxygen Delivery Method room air Intake Visit Reasons: Hernia Chief Complaint: hernia Stem Lead Former Required: No Is patient in pain?: No Allergies lactase [From [employer]] Allergy (Mild, Verified 08/25/23 09:05) Rash soap Allergy (Mild, Verified 08/25/23 09:05) Rash Medications hydrochlorothiazide 25 mg tablet 25 mg PO DAILY bp 07/02/18 [History Confirmed 08/25/23] amlodipine 10 mg tablet 10 mg PO DAILY 10/26/18 [History Confirmed 08/25/23] atorvastatin 20 mg tablet 40 mg PO DAILY cholesterol 07/28/20 [History Confirmed 08/25/23] losartan 100 mg tablet 100 mg PO DAILY 07/28/20 [History Confirmed 08/25/23] meloxicam 7.5 mg tablet 7.5 mg PO DAILY 07/25/22 [History Confirmed 08/25/23] PFSH Medical History High cholesterol History of colon polyps history of finger surgery Hypertension Non-smoker Surgical History History of hernia repair History of vasectomy Family History (Updated 07/31/22 @ 07:56 by Sandra Negron) Mother Hypertension Father Hyperlipidemia sarcoid tumor S/P triple vessel bypass Aunt Bone cancer Aunt Breast cancer Uncle Diabetes Grandfather Myocardial infarction Other Cancer Social History household members: spouse and children housing: house current occupational status: employed Smoking Status: Never smoker alcohol intake: current alcohol intake frequency: holidays/special occasions only substance use type: does not use 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 Dre Grullon for surgical consultation regarding a left inguinal hernia. Written compromise surgical consult recommendations will return to him. is limited. The patient has known about this right inguinal hernia at least since October 2022. 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 He has had a remote left inguinal hernia repair done per another surgeon through an open approach. He states that that is solid. He notes that this right inguinal hernia is now bulging significantly. He does have to manually manipulate and reduce it. It is is becoming increasingly uncomfortable. He otherwise enjoys good health. ROS General General: No weight change, appetite, fatigue, colon cancer, breast cancer or weakness HEENT HEENT: No difficulty swallowing, eye injury, eye surgery, swollen glands or hoarseness Endo Endocrine: No thyroid disease, diabetes mellitus, thyroid cancer, Hair loss, heat intolerance or cold intolerance Skin Skin: No rash or changing moles Musc Musculoskeletal: Yes back problems; No arthritis, rheumatoid arthritis, gout or joint pain Cardio Cardiovascular: Yes high blood pressure; No murmur, pacemaker, heart disease, atrial fibrillation, heart attack, heart stent, palpitations, shortness of breat with exertion or chest pain Psych Psychiatric: No depression, anxiety or hearing voices Resp Respiratory: No shortness of breath, No sleep apnea, No cough, No COPD, No asthma, No emphysema and No wheezing Gastro Gastrointestinal: No abdominal pain, No nausea or vomiting, No diarrhea, No constipation, No blood in stool, No acid reflux, No hemorrhoids, No ulcers, No gallbladder problem and No black,tarry stools Jonah Hematologic: No blood thinners, No blood disorders, No bleeding, No anemia and No blood clots Neuro Neurologic: No tingling and No weakness Exam Const General: cooperative, healthy appearing, comfortable and no acute distress HENMT Head: normal to inspection Eyes General: appearance normal, both eyes and all related structures Neck Neck: normal visual inspection Chest Chest palpation inspection: normal inspection of the chest Resp Effort Inspection: normal respiratory effort Auscultation: clear to auscultation bilaterally Cardio Rate: regular rate Rhythm: regular rhythm GI Inspection: normal to inspection Palpation: soft and no hepatosplenomegaly Other: Left groin solid an (more content not included)... Normal [facility] Basophil percentageon 2021 Bilirubin [Mass/Vol] 0.70 mg/dL 0.20-1.00 [facility] Work Phone: Comment on above: For patients on eltr ombopag therapy, use of Dimension [place] TBIL is not recommended. Chloride [Moles/Vol] 103 mmol/L 98-107 [facility] Work Phone: Cholesterol [Mass/Vol] 184 mg/dL <200 [facility] Work Phone: Comment on above: <200 mg/dL Desirable 200-240 mg/dL Borderline >240 mg/dL High Risk Glucose [Mass/Vol] 99 mg/dL 74-106 [facility] Work Phone: Potassium [Moles/Vol] 4.0 mmol/L 3.5-5.1 [facility] Work Phone: [phone] Protein [Mass/Vol] 7.9 g/dL 6.4-8.2 [facility] Work Phone: Sodium [Moles/Vol] 138 mmol/L 136-145 [facility] Work Phone: Triglyceride [Mass/Vol] 102 mg/dL <199 [facility] Work Phone: Comment on above: The drugs N-Acetylcy steine and Metamizole may falsely depress this assay.Serum Triglycerides Reference Interval Normal <150 mg/dL Borderline high 150 - 199 mg/dL High 200 - 499 mg/dL Very High > or = 500 mg/dL Laboratory - Chemistry and C hemistry - challengeon 12-11-2021 ALP [Catalytic activity/Vol] 79 U/L 45-117 [facility] Work Phone: ALT [Catalytic activity/Vol] 41 U/L 16-61 [facility] Work Phone: CO2 [Moles/Vol] 29.0 mmol/L 21.0-32.0 [facility] Work Phone: Globulin (S) [Mass/Vol] 3.7 g/dL 2.2-4.2 [facility] Work Phone: Urea nitrogen/Creatinine [Mass ratio] 29.4 mg/mg 10-20 [facility] Work Phone: No Panel Informationon 12-11 Estimated GFR (MDRD) Amer 103 mL/min >60 [facility] Work Phone: Comment on above: GFR Calc Estimated GFR (MDRD) Non-Af Amer 86 mL/min >60 [facility] Work Phone: Comment on above: Non- GFR Calc Prostate Specific Antigen Screen 2.50 ng/mL 0.00-4.00 [facility] Work Phone: Comment on above: This test was perfor med using the TPSA assay method for the[employer] chemistry system. Values obtained with differentassay methods cannot be used interchangably.When changing PSA assays in the course of monitoring apatient, additional sequential testing should be carriedout to confirm baseline values. Serum or plasma albumin yue urement (mass/volume)on 12-11-2021 Albumin [Mass/Vol] 4.2 g/dL 3.2-5.0 [facility] Work Phone: Serum or plasma albumin/glob ulin mass ratioon 12-11-2021 Albumin/Globulin [Mass ratio] 1.1 {ratio} 0.9-2.4 [facility] Work Phone: Serum or plasma calcium yue urement (mass/volume)on 12-11-2021 Calcium [Mass/Vol] 9.4 mg/dL 8.5-10.1 [facility] Work Phone: Serum or plasma cholesterol in HDL measurement (mass/volume)on 12-11-2021 Cholesterol in HDL [Mass/Vol] 51 mg/dL >40 [facility] Work Phone: Comment on above: The drugs N-Acetylcy steine and Metamizole may falsely depress this assay. Reference Range HDL <40 mg/dL Low HDL Cholesterol HDL >or= 60 mg/dL High HDL Cholesterol Serum or plasma cholesterol in VLDL measurement (mass/volume)on 12-11-2021 Cholesterol in VLDL [Mass/Vol] 20 mg/dL 5-40 [facility] Work Phone: Serum or plasma creatinine m easurement (mass/volume)on 12-11-2021 Creatinine [Mass/Vol] 0.95 mg/dL 0.70-1.30 [facility] Work Phone: Comment on above: The validity of the calculated GFR & GFRAA in patients over 70 years has not been determined. Clinical correlation is essential. Serum or plasma low density lipoprotein (LDL) cholesterol measurement (mass/volume)on 12-11-2021 Cholesterol in LDL [Mass/Vol] 113 mg/dL 0-130 [facility] Work Phone: Serum or plasma urea nitroge n measurement (mass/volume)on 12-11-2021 Urea nitrogen [Mass/Vol] 28 mg/dL 7-18 [facility] Work Phone: Thin prep Papanicolaou smear with manual screeningon 12-11-2021 Thin prep Papanicolaou smear with manual screening 18 U/L 15-37 [facility] Work Phone: Thin prep Papanicolaou smear with manual screening 6 5-15 [facility] Work Phone: Vital Signs Date Time Vital Sign Value Performing Clinician Faci lity 09-01-2023 14:04-0500 Body temperature 97.8 [degF] Dr. Colin Grullon Work Phone: [facility] 09-01-2023 14:04-0500 Diastolic blood pressure 80 mm[Hg] Dr. Colin Grullon Work Phone: [facility] 09-01-2023 14:04-0500 Heart rate 55 /min Dr. Colin Grullon Work Phone: [facility] 09-01-2023 14:04-0500 Respiratory rate 16 /min Dr. Colin Grullon Work Phone: [facility] 09-01-2023 14:04-0500 SaO2% (BldA) [Mass fraction] 98 % Dr. Colin Grullon Work Phone: [facility] 09-01-2023 14:04-0500 Systolic blood pressure 135 mm[Hg] Dr. Colin Grullon Work Phone: [facility] 09-01-2023 09:05-0500 Body height 180.[address] Colin Grullon Work Phone: [facility] 09-01-2023 09:05-0500 Body mass index (BMI) [Ratio] 27.1 kg/m2 Dr. Colin Grullon Work Phone: [facility] 09-01-2023 09:05-0500 Body weight 88.[address] Colin Grullon Work Phone: [facility] 08-25-2023 09:05-0500 Body mass index (BMI) [Ratio] 26.9 kg/m2 Dr. Colin Grullon Work Phone: [facility] 08-25-2023 09:05-0500 Body temperature 97.7 [degF] Dr. Colin Grullon Work Phone: 9(663)[phone] [place] [address] 08-25-2023 09:05-0500 Body weight 90.[address] Colin Grullon Work Phone: 2(681)450-869343 [place] [address] 08-25-2023 09:05-0500 Diastolic blood pressure 89 mm[Hg] Dr. Colin Grullon Work Phone: [facility] 08-25-2023 09:05-0500 Heart rate 73 /min Dr. Colin Grullon Work Phone: 5(082)532-385800 [address] 08-25-2023 09:05-0500 Respiratory rate 17 /min Dr. Colin Grullon Work Phone: 9(791)569-092443 [place] [address] 08-25-2023 09:05-0500 SaO2% (BldA) [Mass fraction] 98 % Dr. Colin Grullon Work Phone: [facility] 08-25-2023 09:05-0500 Systolic blood pressure 131 mm[Hg] Dr. Colin Grullon Work Phone: 5(815)[phone] [place] [address] 10-11-2022 09:20-0400 Body temperature 97.8 [degF] Dr. Colin Grullon Work Phone: [facility] 10-11-2022 09:20-0400 Diastolic blood pressure 102 mm[Hg] Dr. Colin Grullon Work Phone: 1(381)[phone] [place] [address] 10-11-2022 09:20-0400 Heart rate 54 /min Dr. Colin Grullon Work Phone: [facility] 10-11-2022 09:20-0400 Respiratory rate 16 /min Dr. Colin Grullon Work Phone: [facility] 10-11-2022 09:20-0400 SaO2% (BldA) [Mass fraction] 100 % Dr. Colin Grullon Work Phone: [facility] 10-11-2022 09:20-0400 Systolic blood pressure 133 mm[Hg] Dr. Colin Grullon Work Phone: [facility] 10-11-2022 07:20-0400 Body height 182.[address] Colin Grullon Work Phone: [facility] 10-11-2022 07:20-0400 Body mass index (BMI) [Ratio] 25.6 kg/m2 Dr. Colin Grullon Work Phone: [facility] 10-11-2022 07:20-0400 Body weight 85.[address] Colin Grullon Work Phone: [facility] 07-25-2022 07:33-0500 Body mass index (BMI) [Ratio] 24.4 kg/m2 Dr. Colin Grullon Work Phone: [facility] 07-25-2022 07:33-0500 Body temperature 97.4 [degF] Dr. Colin Grullon Work Phone: [facility] 07-25-2022 07:33-0500 Body weight 81.[address] Colin Grullon Work Phone: [facility] 07-25-2022 07:33-0500 Diastolic blood pressure 95 mm[Hg] Dr. Colin Grullon Work Phone: [facility] 07-25-2022 07:33-0500 Heart rate 94 /min Dr. Colin Grullon Work Phone: [facility] 07-25-2022 07:33-0500 Respiratory rate 18 /min Dr. Colin Grullon Work Phone: [facility] 07-25-2022 07:33-0500 SaO2% (BldA) [Mass fraction] 94 % Dr. Colin Grullon Work Phone: [facility] 07-25-2022 07:33-0500 Systolic blood pressure 156 mm[Hg] Dr. Colin Grullon Work Phone: [facility] Encounters Encounter Date Encounter Type Care Provider Facility Start: 02-03-2024 End: 02-03-2024 ambulatory Kamran LAUREANO Facility:[facility] Start: 09-11-2023 End: 09-11-2023 ambulatory Dre Grullon Facility:[facility] Start: 2023 Encounter for other preprocedural examination Darien D Cebul [facility] Start: 09-01-2023 ambulatory Darien D Cebul Facility :[facility] Start: 09-01-2023 Non-patient / Non-visit Dr. Paz Grullon Work Phone: [facility] Start: 09-01-2023 End: 09-01-2023 Admission to same day surgery center Dr. Colin Grullon Work Phone: [facility] Start: 09-01-2023 End: 09-01-[address] Colin Grullon Work Phone: [facility] Work Phone: Start: 08-29-2023 End: 08-29-2023 ambulatory Darien Nguyen Olverabul Facility:[facility] Start: 08-25-2023 End: 08-25-[address] Colin Grullon Work Phone: [facility] Work Phone: Start: 08-25-2023 End: 08-25-2023 ambulatory Darien D Cebul Facility:[facility] Start: 10-11-2022 Non-patient / Non-visit Dr. Paz Grullon Work Phone: [facility] Start: 10-11-2022 End: 10-11-2022 Admission to same day surgery center Dr. Colin Grullon Work Phone: [facility] Start: 10-11-2022 End: 10-11-[address] Colin Grullon Work Phone: [facility] Work Phone: Start: 07-25-2022 End: 07-25-[address] Cloin Grullon Work Phone: [facility] Start: 12-11-2021 End: 12-11-2021 Patient encounter procedure [facility] Procedures Date Procedure Procedure Detail Performing Clinician Start: 09-01-2023 Laparoscopic, Inguin al Hernia Repair (Right) Dr. Colin Grullon Work Phone: Start: 10-11-[address] Jamel Grullon Work Phone: Plan of Treatment Date Care Activity Detail Author Start: 09-01-2023 Patient discharge [facility] Start: 10-11-2022 Patient discharge [facility] Patient referral [facility] Work Phone: Payers Date Payer Category Payer Self-pay [id number] 2023 Unknown [id number] 2013 Unknown [id number] Unknown [id number] [id number] [id number] Unknown [id number] [id number] [id number] Unknown [id number] [id number] [id number] Unknown [id number] 2.16.8 [id number] Unknown [id number] [id number] [id number] Unknown [id number] [id number] [id number] Social History Date Type Detail Facility Start: 07-28-2020 End: 08-28-2023 Tobacco smoking status NHIS Unknown if ever smoked [facility] Start: 10-27-2018 [facility] Start: 1960 Sex Assigned At Male [facility] Goals Date Patient Goal Desired Activity /State Mental Status Date Assessment Result Facility 09-01-2023 Cognitive function Voice/Name [facility] Work Phone: 10-11-2022 Cognitive function Level Of Cons ciousness Appropriate;Drowsy [facility] Work Phone: 10-11-2022 Cognitive function Voice/Name [facility] Work Phone: Discharge summary 09-01-2023 Note Date & Type Note Facility 09-01-2023 Discharge summary Note Date/Time September 01, 2023 9:45 am [facility] Medical Records Department [address] [place] [address] Instructions for Home/Discharge Instructions 09/01/23 0944 MR#: [id number] Acct: [id number] Name: POLINA KENT Rep #:[id number] : 1960 62 From: Darien Gil MD PCP: Dr. Colin Grullon MD Status: [facility] Discharge Instructions Procedure General Surgery Diet Discharge Diet: Light diet - advance as tolerated (if you have questions about your diet instructions, please talk to you doctor.) Activity Discharge Activity: May Not Drive (for 3-5 days or while taking narcotic pain medicine.) May shower in (days): 1 Lifting Restrictions: 10 pounds Dressing / Incision Call your doctor if your incision/area has: Continuous Slow Oozing, Sudden Increased Bleeding, Increased Pain/ Swelling, Increased Redness and Foul Smelling Discharge Call your doctor if you observe: Fever of 101 or Higher Suture Line Care: Avoid Pulling/Pushing and Avoid Pinching/Bending Additional Dressing/Incision Instructions:: Change or remove dressing in 4 days. Leave steri-strips in place for 1 week. Follow Up Care Please Follow Up With: Darien Gil MD When: Call [phone] to make an appointment to be seen in about 10 days. Test Results: Test results from this visit will be discussed in further detail at your follow-up appointment, if applicable. Discharge Plan Admission Attending Provider: Darien Gil Primary Care Provider: Colin Grullon Discharge Orders/Prescriptions Prescriptions: No Action hydrochlorothiazide 25 mg tablet 25 mg PO DAILY atorvastatin 20 mg tablet 40 mg PO DAILY losartan 100 mg tablet 100 mg PO DAILY amlodipine 10 MG tablet 10 mg PO DAILY Referrals / Follow Up: Colin Grullon MD [Primary Care Provider] - Disposition Disposition (needs filled in before D/C Order can be placed): Home, Self Care 09/01/23 1348<Electronically signed by Darien Gil MD>Darien Gil MD CC: Dr. Colin Grullon MD ~ Signed [facility] Work Phone: History and physical note 09-01-2023 Note Date & Type Note Facility 09-01-2023 History and physi laura note Note Date/Time September 01, 2023 9:44am [facility] Medical Records Department [address] [place] [address] History & Physical Exam 09/01/2344 MR#: [id number] Acct: [id number] Name: POLINA KENT Rep #:[id number] : 1960 62 From: Darien Gil MD PCP: Dr. Colin Grullon MD Status: [facility] Location: [place] [address] History and Physical Date of Admission: 09/01/23 isit Reasons: Hernia Chief Complaint: hernia Stem Lead Former Required: No Is patient in pain?: No Allergies lactase [From [employer]] Allergy (Mild, Verified 08/25/23 09:05) Rashsoap Allergy (Mild, Verified 08/25/23 09:05) Rash Medications hydrochlorothiazide 25 mg tablet 25 mg PO DAILY bp 07/02/18 [History Confirmed 08/25/23] amlodipine 10 mg tablet 10 mg PO DAILY 10/26/18 [History Confirmed 08/25/23] atorvastatin 20 mg tablet 40 mg PO DAILY cholesterol 07/28/20 [History Confirmed 08/25/23] losartan 100 mg tablet 100 mg PO DAILY 07/28/20 [History Confirmed 08/25/23] meloxicam 7.5 mg tablet 7.5 mg PO DAILY 07/25/22 [History Confirmed 08/25/23] PFSH Medical History High cholesterol History of colon polyps history of finger surgery Hypertension Non-smoker Surgical History History of hernia repair History of vasectomy Family History (Updated 07/31/22 @ 07:56 by Sandra Negron) Mother HypertensionFather Hyperlipidemia sarcoid tumor S/P triple vessel bypassAunt Bone cancerAunt Breast cancerUncle DiabetesGrandfather Myocardial infarctionOther Cancer Social History household members: spouse and children housing: house current occupational status: employed Smoking Status: Never smoker alcohol intake: current alcohol intake frequency: holidays/special occasions only substance use type: does not use 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 Dre Grullon for surgical consultation regarding a left inguinal hernia. Written compromise surgical consult recommendations will return to him. is limited. The patient has known about this right inguinal hernia at least since October 2022. 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 He aidan hay and may have to lift upwards [id number] pounds. He has had a remote left inguinal hernia repair done per another surgeon through an open approach. He states that that is solid. He notes that this right inguinal hernia is now bulging significantly. He does have to manually manipulate and reduce it. It is is becoming increasingly uncomfortable. He otherwise enjoys good health. ROS General General: No weight change, appetite, fatigue, colon cancer, breast cancer or weakness HEENT HEENT: No difficulty swallowing, eye injury, eye surgery, swollen glands or hoarseness Endo Endocrine: No thyroid disease, diabetes mellitus, thyroid cancer, Hair loss, heat intolerance or cold intolerance Skin Skin: No rash or changing moles [facility] Musculoskeletal: Yes back problems; No arthritis, rheumatoid arthritis, gout or joint pain Cardio Cardiovascular: Yes high blood pressure; No murmur, pacemaker, heart disease, atrial fibrillation, heart attack, heart stent, palpitations, shortness of breat with exertion or chest pain Psych Psychiatric: No depression, anxiety or hearing voices Resp Respiratory: No shortness of breath, No sleep apnea, No cough, No COPD, No asthma, No emphysema and No wheezing Gastro Gastrointestinal: No abdominal pain, No nausea or vomiting, No diarrhea, No constipation, No blood in stool, No acid reflux, No hemorrhoids, No ulcers, No gallbladder problem and No black,tarry stools Jonah Hematologic: No blood thinners, No blood disorders, No bleeding, No anemia and No blood clots Neuro Neurologic: No tingling and No weakness Exam Const General: cooperative, healthy appearing, comfortable and no acute distress [facility] Head: normal to inspection Eyes General: appearance normal, both eyes and all related structures Neck Neck: normal visual inspection Chest Chest palpation & inspection: normal inspection of the chest Resp Effort & Inspection: normal respiratory effort Auscultation: clear to auscultation bilaterally Cardio Rate: regular rate Rhythm: regular rhythm GI Inspection: normal to inspection Palpation: soft and no hepatosplenomegaly Other: Left groin solid and intact Obvious bowel involvement within the right inguinal hernia which takes effort tomanually reduce. Testicles are descended though atrophic. [facility] Cervical Spine: normal cervical lordosis Skin General: no rashes or lesions noted Neuro General: patient alert and patient awake Psych Appearance: grossly normal Assessment and Plan Assessment and Plan (1) Inguinal hernia of left side without obstruction or gangrene: Status: Acute Plan: Very physically active 62-year-old gentleman. is Cordelia. I recommend him alaparoscopic right inguinal hernia repair with mesh. He is aware of the technique, benefit, risk, alternatives. No guarantees of success been offered. He actually is already scheduled for a week from now. He has had an opportunityto ask and have questions answered. We will proceed as noted. Copy: Dr. Dre Gil M.D., F.A.C.S I have examined the patient and the H&P has been reviewed. There are no clinicalchanges since date of exam. Darien Gil M.D., [email or web address]. 09/01/23943 <Electronically signed by Darien Gil MD> Cosigner Signature (if applicable): CC: Dr. Colin Grullon MD; Dr. Darien Gil MD~ Signed [facility] Work Phone: Procedure note 09-01-2023 Note Date & Type Note Facility 09-01-2023 Procedure note [facility] Clinical Note 09-01-2023 Note Date & Type Note Facility 09-01-2023 Note [facility] Medical Records Department [address] [place] [address] History Physical Exam 09/01/23943 MR#: [id number] Acct: [id number] Name: POLINA KENT Rep #: [id number] : 1960 62 From: Darien Gil MD PCP: Dr. Colin Grullon MD Status:[facility] Location: [place] [address] History and Physical Date of Admission: 09/01/23 isit Reasons: Hernia Chief Complaint: hernia Stem Lead Former Required: No Is patient in pain?: No Allergies lactase [From [employer]] Allergy (Mild, Verified 08/25/23 09:05) Rashsoap Allergy (Mild, Verified 08/25/23 09:05) Rash Medications hydrochlorothiazide 25 mg tablet 25 mg PO DAILY bp 07/02/18 [History Confirmed 08/25/23] amlodipine 10 mg tablet 10 mg PO DAILY 10/26/18 [History Confirmed 08/25/23] atorvastatin 20 mg tablet 40 mg PO DAILY cholesterol 07/28/20 [History Confirmed 08/25/23] losartan 100 mg tablet 100 mg PO DAILY 07/28/20 [History Confirmed 08/25/23] meloxicam 7.5 mg tablet 7.5 mg PO DAILY 07/25/22 [History Confirmed 08/25/23] PFSH Medical History High cholesterol History of colon polyps history of finger surgery Hypertension Non-smoker Surgical History History of hernia repair History of vasectomy Family History (Updated 07/31/22 @ 07:56 by Sandra Negron) Mother HypertensionFather Hyperlipidemia sarcoid tumor S/P triple vessel bypassAunt Bone cancerAunt Breast cancerUncle DiabetesGrandfather Myocardial infarctionOther Cancer Social History household members: spouse and children housing: house current occupational status: employed Smoking Status: Never smoker alcohol intake: current alcohol intake frequency: holidays/special occasions only substance use type: does not use 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 Dre Grullon for surgical consultation regarding a left inguinal hernia. Written compromise surgical consult recommendations will return to him. is limited. The patient has known about this right inguinal hernia at least since October 2022. 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 He has had a remote left inguinal hernia repair done per another surgeon through an open approach. He states that that is solid. He notes that this right inguinal hernia is now bulging significantly. He does have to manually manipulate and reduce it. It is is becoming increasingly uncomfortable. He otherwise enjoys good health. ROS General General: No weight change, appetite, fatigue, colon cancer, breast cancer or weakness HEENT HEENT: No difficulty swallowing, eye injury, eye surgery, swollen glands or hoarseness Endo Endocrine: No thyroid disease, diabetes mellitus, thyroid cancer, Hair loss, heat intolerance or cold intolerance Skin Skin: No rash or changing moles Musc Musculoskeletal: Yes back problems; No arthritis, rheumatoid arthritis, gout or joint pain Cardio Cardiovascular: Yes high blood pressure; No murmur, pacemaker, heart disease, atrial fibrillation, heart attack, heart stent, palpitations, shortness of breat with exertion or chest pain Psych Psychiatric: No depression, anxiety or hearing voices Resp Respiratory: No shortness of breath, No sleep apnea, No cough, No COPD, No asthma, No emphysema and No wheezing Gastro Gastrointestinal: No abdominal pain, No nausea or vomiting, No diarrhea, No constipation, No blood in stool, No acid reflux, No hemorrhoids, No ulcers, No gallbladder problem and No black,tarry stools Jonah Hematologic: No blood thinners, No blood disorders, No bleeding, No anemia and No blood clots Neuro Neurologic: No tingling and No weakness Exam Const General: cooperative, healthy appearing, comfortable and no acute distress [facility] Head: normal to inspection Eyes General: appearance normal, both eyes and all related structures Neck Neck: normal visual inspection Chest Chest palpation inspection: normal inspection of the chest Resp Effort Inspection: normal respiratory effort Auscultation: clear to auscultation bilaterally Cardio Rate: regular rate Rhythm: regular rhythm GI Inspection: normal to inspection Palpation: soft and no hepatosplenomegaly Other: Left groin solid and intact Obvious bowel involvement within the right inguinal hernia which takes effort to manually reduce. Testicles are descended though atrophic. Musc Cervical Spine: normal cervical lordosis Skin General: no rashes or lesions noted Neuro General: patient alert and patient awake Psych Appearance: grossly normal Assessment (more content not included)... [facility] History and physical note 10-11-2022 Note Date & Type Note Facility 10-11-2022 History and physi laura note Note Date/Time October 11, 2022 7:30am [facility] Medical Records Department [address] [place] [address] History & Physical Exam 10/11/22729 MR#: [id number] Acct: [id number] Name: POLINA KENT Rep #:[id number] : 1960 62 From: Darien Gil MD PCP: Dr. Colin Grullon MD Status: [facility] Location: [place] [address] History and Physical Date of Admission: 10/11/22 Visit Reasons:?CSCOPE Chief Complaint: Colonoscopy Stem Lead Former Required: No Accompanied by: Is patient in pain?: No Allergies lactase [From [employer]] Allergy (Mild, Verified 07/25/22 07:35) Rashsoap Allergy (Mild, Verified 07/25/22 07:35) Rash Medications hydrochlorothiazide 25 mg tablet 25 mg PO DAILY bp 07/02/18 [History Confirmed 07/25/22] amlodipine 10 mg tablet 10 mg PO DAILY 10/26/18 [History Confirmed 07/25/22] atorvastatin 20 mg tablet 40 mg PO DAILY cholesterol 07/28/20 [History Confirmed 07/25/22] losartan 100 mg tablet 100 mg PO DAILY 07/28/20 [History Confirmed 07/25/22] meloxicam 7.5 mg tablet 7.5 mg PO DAILY 07/25/22 [History Confirmed 07/25/22] PFSH Medical History?(Updated 07/25/22 @ 07:[address] Darien Gil MD) High cholesterol History of colon polyps history of finger surgery Hypertension Surgical History? History of hernia repair History of vasectomy Family History? Mother HypertensionFather?? Hyperlipidemia sarcoid tumor S/P triple vessel bypassAunt Bone cancerAunt Breast cancerUncle DiabetesGrandfather?? Myocardial infarctionOther Cancer Social History? household members:? spouse and children housing:? house current occupational status:? employed Smoking Status:? Never smoker alcohol intake:? current alcohol intake frequency: holidays/special occasions only substance use type:? does not use what type of physical activity do you participate in:? 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 Yes HPI HPI HPI: 61-year-old gentleman who is being referred by Dr. Dre Grullon for surgical consultation regarding a surveillance colonoscopy.? [facility] It is of note that I have assisted the patient as recently as October 27, 2018 with a colonoscopy.? I removed a tubular adenoma from the ascending colon and a tubular adenoma from the distal transverse colon and a tubular adenoma from the splenic flexure and a tubular adenoma from from the proximal sigmoid and a tubulovillous adenoma from the proximal sigmoid.? Fortunately at this time he has no bright red blood per rectum or melena.? No unexpected weight change.? He enjoys good health other than hypertension and hyperlipidemia.? He is not on any anticoagulation. ROS General General: No weight change, appetite, fatigue, colon cancer, breast cancer or weakness HEENT HEENT: No difficulty swallowing, eye injury, eye surgery, swollen glands or hoarseness Endo Endocrine: No thyroid disease, diabetes mellitus, thyroid cancer, Hair loss, heat intolerance or cold intolerance Skin Skin: No rash or changing moles Breast Breast: No left breast lump, right breast lump, nipple discharge, breast pain, abnormal mammogram, abnormal US or breast enlargement Musc Musculoskeletal: No back problems, arthritis, rheumatoid arthritis, gout or joint pain Cardio Cardiovascular: Yes high blood pressure; No murmur, pacemaker, heart disease, atrial fibrillation, heart attack, heart stent, palpitations, shortness of breat with exertion or chest pain Psych Psychiatric: No depression, anxiety or hearing voices Resp Respiratory: No shortness of breath, No sleep apnea, No cough, No COPD, No asthma, No emphysema and No wheezing Gastro Gastrointestinal: No abdominal pain, No nausea or vomiting, No diarrhea, No constipation, No blood in stool, No acid reflux, No hemorrhoids, No ulcers, No gallbladder problem and No black,tarry stools Jonah Hematologic: No blood thinners, No blood disorders, No bleeding, No anemia and No blood clots Neuro Neurologic: No system reviewed and no additional complaints, except as documented, No as per HPI, No abnormal gait, No abnormal hearing, No abnormal movements, No abnormal speech, No behavioral changes, No burning sensations, No confusion, No convulsions, No disequilibrium, No dizziness, No localized weakness, No frequent falls, No headache(s), No lack of coordination, No loss of vision, No memory loss, No numbness, No other visual disturbances, No radicular pain, No restless legs, No sensory deficit, No syncope, No tingling, No tremor(s), No weakness and No other Exam Const General: cooperative, healthy appearing, comfortable and no acute distress [facility] Head: normal to inspection Eyes General: appearance normal, both eyes and all related structures Neck Neck: normal visual inspection Carotids: normal carotid upstroke and no bruits Chest Chest palpation & inspection: normal inspection of the chest Resp Effort & Inspection: normal respiratory effort Auscultation: clear to auscultation bilaterally Cardio Rate: regular rate Rhythm: regular rhythm GI Palpation: soft and no hepatosplenomegaly Auscultation: normal bowel sounds Neuro General: patient alert, patient awake and patient oriented x3 Extrem General: no calf tenderness Psych Appearance: grossly normal Assessment and Plan Assessment and Plan (1) History of colon polyps: ?Status:?Acute ?Plan: 61-year-old gentleman with a personal history of colon polyps.? Previous colonoscopy October 27, 2018 with 5 polyps removed at that time 1 including a tubulovillous adenoma of the proximal sigmoid.? I do recommend him a colonoscopywith possible biopsy or polypectomy as indicated.? He is aware of the technique,benefit, risk and alternatives.? He has had an opportunity to ask and have questions answered.? We will schedule procedure at his discretion.? I appreciatethe opportunity of assisting with the surgical care. Copy: Dr. Dre iGl M.D., F.A.C.S I have examined the patient and the H&P has been reviewed. There are no clinicalchanges since date of exam. Darien Gil M.D., F.A.C.S. 10/11/22 [id number] <Electronically signed by Darien Gil MD> Cosigner Signature (if applicable): CC: Dr. Colin Grullon MD; Dr. Darien Gil MD~ Signed [facility] Work Phone: Procedure note 10-11-2022 Note Date & Type Note Facility 10-11-2022 Procedure note [facility] Procedure note 10-11-2022 Note Date & Type Note Facility 10-11-2022 Procedure note [facility] Evaluation note Note Date & Type Note Facility Evaluation note No assessment information availa ble [facility] Work Phone: Evaluation note Note Date & Type Note Facility Evaluation note Diagnosis Onset Date History of colon polyps acut e [facility] Work Phone: Evaluation note Note Date & Type Note Facility Evaluation note Diagnosis Onset Date Inguinal hernia of left side without obstruction or gangrene acute [facility] Work Phone: Family History No Family History Records Found Relationship Condition Age at Onset Recorded Date/T yanet Not Specified Malignant neoplasm Unknown mother Hypertension Unknown father Hyperlipidemia Unknown Unknown Status post three ve ssel coronary artery bypass Unknown aunt Malignant neoplasm of bone Unknown aunt Malignant neoplasm of breast Unknown uncle Diabetes mellitus Unknown grandfather Myocardial infarction Unknown Advance Directives No Advanced Directives Records Found Advance Directive Response Recorded Date/ Time Living Will No October 26, 2018 4:09pm Power of Physician Practice Manager No October 26 4:09pm Advance Directive Response Recorded Date/ Time Living Will No October 09, 2022 9:56am Power of Physician Practice Manager No October 09 9:56am Advance Directive Response Recorded Date/ Time Living Will No July 3:06pm Power of Physician Practice Manager No August 28, 2023 3:06pm Chief Complaint and Reason for Visit Chief Complaint CSCOPE Reason for Visit History of colon rebecca yps Chief Complaint Hernia Laparoscopic,Right Inguinal Hernia Laparoscopic,Right Inguinal Hernia Reason for Visit Inguinal hernia of l eft side without obstruction or gangrene Summary Purpose Additional Source Comments Care Teams (unrecognized sec tion and content) Team Status: Active Member Role Status Dates Dr. Colin Grullon MD Family Provider Active Dr. Colin Grullon MD Primary Care Provider Activ e Team Status: Inactive Member Role Status Dates Dr. Colin Grullon MD Primary Care Provider, Refe rring Provider Active Dr. Darien Gil MD Attending Provider Active Team Status: Active Member Role Status Dates Dr. Colin Grullon MD Primary Care Provider, Refe rring Provider Active Dr. Darien Gil MD Attending Provider, Other Prov ider Active Team Status: Active Member Role Status Dates Dr. Colin Grullon MD Primary Care Provider Activ e Dr. Darien Gil MD Attending Provid er, Referring Provider, Other Provider Active Team Status: Inactive Member Role Status Dates Dr. Colin Grullon MD Primary Care Provider Activ e Dr. Darien Gil MD Attending Provider, Referring Provider Active (unrecognized sect ion and content) No Status Records Found INFORMATION SOURCE (unrecogn ized section and content) DATE CREATED AUTHOR 02/05/2024 [facility] FOR RECORDS PERTAINING TO PATIENTS WHO ARE OR HAVE BEEN ENROLLED IN A CHEMICAL DEPENDENCY/SUBSTANCEABUSE PROGRAM, SOME INFORMATION MAY BE OMITTED. This clinical summary was aggregated from multiple sources. Caution should be exercised in using it in the provision of clinical care. This summary normalizes information from multiple sources, and as a consequence, information in this document may materially change the coding, format and clinical context of patient data. In addition, data may be omitted in some cases. CLINICAL DECISIONS SHOULD BE BASED ON THE PRIMARY CLINICAL RECORDS. [employer] provides no warranty or guarantee of the accuracy or completeness of information in this document.
[2025-01-13 19:58] LABS: AST(SGOT) 21 U/L (<=37); Alanine Aminotransfer ALT/SGPT 19 U/L (<=46); Albumin, Serum 4.4 g/dL (3.4-4.8); Alkaline Phosphatase 85 U/L (40-129); Anion Gap 11 (5-15); BUN 21 mg/dL (4-19); BUN/Creat Ratio 21.9 RATIO (10-20); Calcium,Total 9.6 mg/dL (7.6-11.0); Carbon Dioxide 26.4 mmol/L (21.0-32.0); Chloride 101 mmol/L (98-108); Cholesterol 174 mg/dL (<=200); Globulin 2.9 g/dL (2.2-4.2); Glucose 109 mg/dL (70-99); Low Density Lipoprotein Calc. 111 mg/dL; PSA,Total - Annual Screen 2.40 ng/mL (0.02-4.00); Potassium 4.3 mmol/L (3.3-5.1); Triglycerides 92 mg/dL; Very Low Density Lipoprotein 18 mg/dL (5-40); cholesterol:hdl ratio screen 3.87
== END | disposition home or self-care (01) ==
PROVIDERS: PCP Family Medicine; Referring Provider Family Medicine; Visit Provider Family Medicine
DX: Z00.00 Encounter for general adult medical examination without abnormal findings (principal); E78.5 Hyperlipidemia, unspecified; Z12.5 Encounter for screening for malignant neoplasm of prostate
CPT/HCPCS: 36415; 80053; 80061; 81002; 82043; 82570; 84153; G0103

== ENCOUNTER → 2025-01-13 | Outpatient (CLI) | payer SELFPAY | END | disposition home or self-care (01) | LOC: MTLAB 08:36 | PROVIDERS: PCP Family Medicine; Referring Provider Family Medicine; Visit Provider Family Medicine | DX: Z00.00 Encounter for general adult medical examination without abnormal findings (principal); E78.5 Hyperlipidemia, unspecified; Z12.5 Encounter for screening for malignant neoplasm of prostate ==